=== PATIENT | male | born 1970 | race Caucasian/White ===

== ENCOUNTER 2021-04-19 12:44 | Outpatient (REF) | payer MEDICAID, SELFPAY ==
--- NOTE | ~2021-04-19 | MR_ITS ---
EXAMINATION: MR BRAIN WITHOUT CONTRAST CLINICAL INFORMATION: Paresthesias of skin. COMPARISON: Head CT dated 08/20/2011. TECHNIQUE: Multiplanar, multisequence imaging of the brain was performed without contrast. FINDINGS: No diffusion abnormalities are identified to suggest an acute or subacute infarct. The ventricles are normal in size. No mass effect or midline shift is seen. Minimal nonspecific bifrontal white matter signal changes noted. No extra-axial fluid collections are seen. The brainstem and cerebellum are normal. The gradient refocused acquisition is normal. The craniovertebral junction, marrow signal, and midline structures are normal. The major intracranial flow voids at the level of the [place] are preserved. The dural venous sinus flow voids are maintained. The mastoid air cells and paranasal sinuses are well aerated. MR/MR head/brain wo con IMPRESSION: No acute process. Minimal scattered white matter signal changes of indeterminate clinical significance.
== END 2021-04-19 12:45 | disposition home or self-care (01) ==
LOC: HO.MRI 12:44
PROVIDERS: PCP Student in an Organized Health Care Education/Training Program; Visit Provider Student in an Organized Health Care Education/Training Program
DX: R20.2 Paresthesia of skin (principal)
CPT/HCPCS: 70551

== ENCOUNTER 2021-05-27 08:54 | Emergency (ER) | payer MEDICAID, SELFPAY ==
--- NOTE | ~2021-05-27 | CT_ITS ---
EXAMINATION: CT ABDOMEN AND PELVIS WITHOUT CONTRAST CLINICAL INFORMATION: Right flank pain COMPARISON: None TECHNIQUE: Multidetector volumetric imaging was performed from the superior aspect of the liver through the pubic symphysis. Sagittal and coronal reformatted images were obtained on the technologist's workstation. This CT examination was performed using dose optimization techniques as appropriate, variously including the following: *Automated exposure control *Adjustment of mA and/or kV according to patient size (this includes techniques or standardized protocols for targeted exams where dose is matched to indication/reason for exam; i.e. extremities or head) *Use of iterative reconstruction technique DLP: 588 mGy-cm FINDINGS: LUNG BASES: The visualized lung bases are unremarkable. LIVER, GALLBLADDER, AND BILIARY TREE: The liver is low in attenuation suggestive of fatty infiltration. The liver is normal in size and contour. No focal liver lesion or biliary duct dilatation The gallbladder is unremarkable with no evidence of radiopaque gallstones, gallbladder wall thickening, or obvious pericholecystic inflammatory changes. PANCREAS: Unremarkable. SPLEEN: The spleen is enlarged and measures 15 cm in length. ADRENAL GLANDS: Unremarkable. KIDNEYS AND URETERS: There are multiple small bilateral renal stones. There is mild right hydronephrosis and ureteral dilatation down to the bladder from a 2 mm right UVJ or bladder stone. BLADDER: 2 mm right UVJ or bladder stone. The bladder is otherwise unremarkable. GASTROINTESTINAL TRACT: There are postsurgical changes to the sigmoid colon. The small and large bowel is otherwise unremarkable. The appendix is unremarkable. ABDOMINAL WALL: No significant hernia is appreciated. LYMPH NODES: Normal. VASCULAR: Unremarkable. PELVIC VISCERA: Unremarkable. OSSEOUS STRUCTURES: There are are degenerative changes of the spine and bilateral hip joints. There is degenerative disc disease at L5-S1. There is a 5 mm sclerotic lesion in the L4 vertebral body. This is nonspecific and may represent a bone island. Degenerative CT/CT abdomen pelvis wo con IMPRESSION: Mild right hydronephrosis and ureteral dilatation from a 2 mm right UVJ or bladder stone. Small bilateral renal stones. Fatty liver. Enlarged spleen. Postsurgical changes to the sigmoid colon.
[2021-05-27 08:58] VITALS: BP 179/102; PULSE 85; RESP 19; TEMP 35.1; O2SAT 100; BMI 27.3
--- NOTE | 2021-05-27 09:34 | ED_ITS ---
HPI - General Adult General Chief complaint: General Medical Stated complaint: kidney pain Time Seen by Provider: 05/27/21 09:33 History of Present Illness HPI narrative: Patient is a 50-year-old male with a history of having abdominal pain sudden in onset over the right flank area radiating to the right groin area. Sharp 04/28. No cough no congestion or upper respiratory symptoms. No diaphoresis. Pain on urination. No allergies to any medication. No diaphoresis no chest pain. No change in bowel movement. No history kidney stones in the past. Related Data Home Medications Medication Instructions Recorded Confirmed amlodipine 5 mg tablet 5 mg PO DAILY 05/27/21 bictegravir 50 mg-emtricitabine 1 tab PO DAILY 05/27/21 200 mg-tenofovir alafenam 25 mg tablet (Biktarvy) cyclobenzaprine 10 mg tablet 10 mg PO BID PRN 05/27/21 fluticasone propionate 44 2 puff PO BID 05/27/21 mcg/actuation HFA aerosol inhaler (Flovent HFA) levothyroxine 125 mcg tablet 250 mcg PO DAILY 05/27/21 sulfamethoxazole 800 1 tab PO DAILY 05/27/21 mg-trimethoprim 160 mg tablet Previous Rx's Medication Instructions Recorded ibuprofen 400 mg tablet 400 mg PO Q6H PRN #20 tab 05/27/21 ondansetron HCl 4 mg tablet 4 mg PO Q8H PRN #10 tab 05/27/21 (Zofran) oxycodone 5 mg tablet 5 mg PO Q8H PRN #7 tab 05/27/21 tamsulosin 0.4 mg capsule (Flomax) 0.4 mg PO DAILY #7 cap 05/27/21 Allergies Allergy/AdvReac Type Severity Reaction Status Date / Time No Known Allergies Allergy Unverified 04/05/20 17:21 Review of Systems Review of Systems: Positive right flank pain Positive nausea All systems reviewed otherwise negative [facility] Past Medical History Attestation statement: The following information was validated with the patient. Medical History HIV (human immunodeficiency virus infection) Kidney stone Social History Social History Advance Directives: No Advance Directives Information Provided: No Physical Exam Vital Signs: Vital Signs: Last Vital Signs Temp 95.2 F L 05/27/21 08:58 Pulse 85 05/27/21 08:58 Resp 19 05/27/21 08:58 BP 179/102 H 05/27/21 08:58 Pulse Ox 100 05/27/21 08:58 Body Mass Index 27.3 Appearance: Alert. Oriented X3. No acute distress. Eyes: Pupils equal, round and reactive to light. ENT: Pharynx normal. Neck: Normal inspection. Neck supple. No lymph nodes noted. No crepitus CVS: Normal heart rate and rhythm. Pulses normal. Normal S1 and S2 Respiratory: No respiratory distress. Breath sounds normal. No Wheezing. No rales Abdomen: Soft and nontender. No rigidity. No distention. good BS x4 Skin: Skin warm and dry. Normal skin color. Normal skin turgor. Extremities: No lower extremity edema. Neurovascular intact to all extremities. No Lacerations. No Rash Neuro: Oriented X 3. No motor deficit. No sensory deficit. Moving all extermities. No slurred speech Medical Decision Making MDM Narrative Medical decision making narrative: CT scan of the abdomen pelvis showed a 2 mm UVJ stone. Patient well appearing urine negative for infection creatinine is normal pain is controlled. Will discharge patient home close follow-up on an outpatient basis. Lab Data Result diagrams: 05/27/21 09:44 05/27/21 09:44 Labs: Lab Results 05/27/21 05/27/21 05/27/21 Range/Units 09:44 09:44 09:54 WBC 8.8 (4.8-10.8) X10*3/uL RBC 4.97 (4.60-5.80) X10*6/uL Hgb 16.5 (14.0-18.0) g/dl Hct 45.6 (42.0-52.0) % MCV 91.8 (80.0-98.0) fL MCH 33.2 H (27.0-33.0) pg MCHC 36.2 H (31.0-36.0) g/dl RDW 12.1 (11.0-16.0) % Plt Count 179 (160-400) X10*3/uL MPV 10.4 (9.4-12.4) fL Immature Gran % (Auto) 0.6 H (0.0-0.4) % Neut % (Auto) 71.3 (45-73) % Lymph % (Auto) 20.2 (20-40) % [place] % (Auto) 6.5 (2-11) % Eos % (Auto) 1.1 (0-4) % Baso % (Auto) 0.3 (0-2) % Lymph # (Auto) 1.8 (1.2-4.9) X10*3/uL [place] # (Auto) 0.6 (0.1-1.2) X10*3/uL Eos # (Auto) 0.1 (0.0-0.4) X10*3/uL Baso # (Auto) 0.0 (0.0-0.2) X10*3/uL Abs Immat Gran (auto) 0.05 H (0.00-0.03) X10*3/uL Absolute Neuts (auto) 6.3 (2.0-8.3) x10*3/uL Absolute Nucleated RBC 0.000 (0.0-0.012) X10*3/uL Nucleated RBC % (auto) 0.0 (0.0-0.2) /100WBC Sodium 138 (135-145) mmol/L Potassium 4.5 (3.3-5.1) mmol/L Chloride 104 (96-108) mmol/L Carbon Dioxide 25 (22-29) mmol/L Anion Gap 14 (12-20) BUN 16 (9-16) mg/dL Creatinine 1.32 (0.5-1.4) mg/dL Estim Creat Clear Calc 66.1 Estimated GFR 57 Random Glucose 151 H (60-115) mg/dL Calcium 9.7 (8.4-10.2) mg/dL Total Bilirubin 1.0 (0.0-1.0) mg/dL Direct Bilirubin 0.3 (0.0-0.5) mg/dL AST 36 (5-37) U/L ALT 54 H (0-40) U/L Alkaline Phosphatase 58 (39-117) U/L Total Creatine Kinase 277 H (38-174) U/L Total Protein 8.2 H (6.5-8.0) g/dL Albumin 5.1 H (3.5-5.0) g/dL Urine Color DK YELLOW Urine Appearance CLOUDY Urine pH 6.0 (5.0-8.0) Ur Specific [place] >= 1.030 H (1.005-1.025) Urine Protein 1+ H (NEG-TRACE) MG/DL Urine Glucose (UA) NEG (NEG) MG/DL Urine Ketones 5 (NEG) MG/DL Urine Blood 3+ H (NEG) Urine Nitrite NEG (NEG) Ur Leukocyte Esterase NEG (NEG) Urine RBC TNTC H (0) /HPF Urine WBC 0 (0-4) /HPF Ur Squamous Epith Cells NONE /LPF Urine Bacteria TRACE /LPF Discharge Plan Discharge Clinical Impression: Renal colic Patient Disposition: Home, Self-Care Instructions: Renal Colic (ED) Prescriptions: New ondansetron HCl [Zofran] 4 mg tablet 4 mg PO Q8H PRN (Reason: nausea and vomiting) Qty: 10 RF: 0 tamsulosin [Flomax] 0.4 mg capsule 0.4 mg PO DAILY Qty: 7 RF: 0 ibuprofen 400 mg tablet 400 mg PO Q6H PRN (Reason: pain) Qty: 20 RF: 0 oxycodone 5 mg tablet 5 mg PO Q8H PRN (Reason: pain) Qty: 7 RF: 0 No Action cyclobenzaprine 10 mg tablet 10 mg PO BID PRN (Reason: Muscle Spasm) RF: 0 amlodipine 5 mg tablet 5 mg PO DAILY RF: 0 sulfamethoxazole-trimethoprim 800-160 mg tablet 1 tab PO DAILY RF: 0 levothyroxine 125 mcg tablet 250 mcg PO DAILY RF: 0 Flovent HFA 44 mcg/actuation HFA aerosol inhaler 2 puff PO BID RF: 0 Biktarvy 50-200-25 mg tablet 1 tab PO DAILY RF: 0 Referrals: Aftab Nolan MD [Physician] - 2 days
[2021-05-27] MEDS: HYDROmorphone HCl 0.5 MG/0.5 ML SYRINGE IVPUSH ×2 (09:44→10:24)
[2021-05-27] MEDS: 0.9 % Sodium Chloride 500 ML 999 ML IV (09:48)
[2021-05-27 09:51] LABS: MANUAL DIFF FLAG NO
[2021-05-27 09:53] LABS: Basophils Percent Auto 0.3 % (0-2); Eosinophils Absolute Auto 0.1 X10*3/uL (0.0-0.4); Eosinophils Percent Auto 1.1 % (0-4); Hematocrit 45.6 % (42.0-52.0); Hemoglobin 16.5 g/dl (14.0-18.0); Imm Gran Abs Auto 0.05 X10*3/uL (0.00-0.03); Imm Gran Pct Auto 0.6 % (0.0-0.4); Lymphocytes Absolute Auto 1.8 X10*3/uL (1.2-4.9); Lymphocytes Percent Auto 20.2 % (20-40); Mean Corpuscular HGB Conc 36.2 g/dl (31.0-36.0); Mean Corpuscular Hemoglobin 33.2 pg (27.0-33.0); Mean Corpuscular Volume 91.8 fL (80.0-98.0); Mean Platelet Volume 10.4 fL (9.4-12.4); Monocytes Absolute Auto 0.6 X10*3/uL (0.1-1.2); Monocytes Percent Auto 6.5 % (2-11); Neutrophils Absolute Auto 6.3 x10*3/uL (2.0-8.3); Neutrophils Percent Auto 71.3 % (45-73); Platelet Count 179 X10*3/uL (160-400); Red Blood Count 4.97 X10*6/uL (4.60-5.80); Red Cell Distribution Width 12.1 % (11.0-16.0); White Blood Count 8.8 X10*3/uL (4.8-10.8)
[2021-05-27] MEDS: ondansetron HCL 4 MG/2 ML VIAL IVPUSH (09:53)
[2021-05-27 10:01] LABS: Appearance Urine CLOUDY; Color Urine DK YELLOW; Glucose Urine UA NEG (NEG); Leukocyte Esterase Urine NEG (NEG); Nitrite Urine NEG (NEG); Specific Gravity - Urine >= 1.030 (1.005-1.025); UACC Culture Trigger NO; Urine Blood 3+ (NEG); Urine Ketones 5 MG/DL (NEG); Urine Protein 1+ MG/DL (NEG-TRACE)
[2021-05-27] MEDS: 0.9 % Sodium Chloride 1,000 ML 999 ML IV (10:01)
[2021-05-27] MEDS: Ketorolac Tromethamine 15 MG/ML VIAL 30 MG IVPUSH (10:01)
[2021-05-27 10:10] LABS: Bacteria Urine TRACE /LPF; RBC Urine TNTC /HPF (0); WBC Urine 0 /HPF (0-4)
[2021-05-27 10:15] LABS: Alanine Aminotransferase 54 U/L (0-40); Albumin Level 5.1 g/dL (3.5-5.0); Alkaline Phosphatase 58 U/L (39-117); Anion Gap 14 (12-20); Aspartate Amino Transferase 36 U/L (5-37); Bilirubin Direct 0.3 mg/dL (0.0-0.5); Blood Urea Nitrogen 16 mg/dL (9-16); Calcium 9.7 mg/dL (8.4-10.2); Carbon Dioxide 25 mmol/L (22-29); Chloride 104 mmol/L (96-108); Creatinine Clr Calc Pharmacy 66.1; Estimated Glomerular Filt Rate 57; Glucose Random 151 mg/dL (60-115); Potassium 4.5 mmol/L (3.3-5.1); Sodium 138 mmol/L (135-145); Total Protein 8.2 g/dL (6.5-8.0)
[2021-05-27] MEDS: LORazepam 2 MG/ML VIAL 0.5 MG IVPUSH (10:23)
[2021-05-27 11:32] VITALS: BP 159/93; PULSE 81; RESP 16; TEMP 36.1; O2SAT 97
== END 2021-05-27 11:40 | disposition home or self-care (01) ==
PROVIDERS: Emergency Provider Emergency Medicine Emergency Medical Services
DX: N23 Unspecified renal colic (principal); Z79.899 Other long term (current) drug therapy
CPT/HCPCS: 36415; 74176; 80048; 80076; 81001; 82550; 85025; 96361; 96374; 96375; 96376; 99283; 99284; J1170; J1885; J2060; J2405

== ENCOUNTER → 2021-06-25 08:46 | Outpatient (BNVA) | payer MEDICAID, SELFPAY | PROVIDERS: Visit Provider Urology | DX: N20.0 Calculus of kidney (principal) | CPT/HCPCS: 99202 ==

== ENCOUNTER 2021-11-28 08:45 | Outpatient (REF) | payer MEDICAID, SELFPAY ==
--- NOTE | ~2021-11-28 | US_ITS ---
EXAMINATION: US RETROPERITONEAL LIMITED (RENAL ONLY) CLINICAL INFORMATION: Calculus of kidney. COMPARISON: CT abdomen and pelvis 05/27/2021. X-ray abdomen 10/23/2017. TECHNIQUE: Real-time imaging of the kidneys. FINDINGS: RIGHT KIDNEY: 11.0 x 7.2 x 7.3 cm (SAG x AP x TRV). The kidney is normal in size, contour, and echogenicity. Renal cortical thickness is normal. No calculi or focal parenchymal lesions. No hydronephrosis. There are multiple punctate calcifications seen throughout with no twinkle artifact. The largest echogenic area measures 0.4 x 0.4 cm. No echogenic shadowing seen. There is no caliectasis. LEFT KIDNEY: 11.1 x 6.4 x 6.1 cm (SAG x AP x TRV). The kidney is normal in size, contour, and echogenicity. Renal cortical thickness is normal. No calculi or focal parenchymal lesions. No hydronephrosis. There are multiple punctate calcifications seen throughout with no twinkle artifact. No echogenic calcification either. There is no caliectasis. US/US renal BI IMPRESSION: Multiple echogenic areas within both kidneys without twinkle artifact likely small calcifications. There is no caliectasis or hydronephrosis.
== END 2021-11-28 08:46 | disposition home or self-care (01) ==
LOC: HO.US 08:45
PROVIDERS: Visit Provider Urology
DX: N20.0 Calculus of kidney (principal)
CPT/HCPCS: 76775

== ENCOUNTER 2022-04-30 09:53 | Observation (INO) | payer MEDICAID, SELFPAY ==
[2022-04-30] VITALS (11 sets, daily range): BP systolic 148–190; BP diastolic 7–111; PULSE 79–100; RESP 14–20; TEMP 36.4–36.8; O2SAT 97–98; BMI 27.8
--- NOTE | ~2022-04-30 | MR_ITS ---
EXAMINATION: MR BRAIN WITHOUT CONTRAST CLINICAL INFORMATION: Dizziness COMPARISON: Same day CT head without contrast, MR brain without contrast 04/19/2021 TECHNIQUE: Multiplanar multisequence MR imaging of the brain was obtained without intravenous contrast. FINDINGS: There is no acute infarct on diffusion-weighted imaging. There is no intracranial hemorrhage on iron-sensitive imaging. No extra-axial collection or mass effect/herniation. There are several scattered foci of nonspecific supratentorial white matter T2/FLAIR signal abnormality. No hydrocephalus. Mild generalized cerebral volume loss with commensurate sulcal and ventricular prominence. Asymmetric caliber of the lateral ventricles, likely congenital The major flow voids at the skull base are preserved. The midline structures are normal. The cerebellar tonsils are normally positioned. The craniocervical junction is normal. Marrow signal is within normal limits. The visualized soft tissues are without significant abnormality. Moderate left sphenoid sinus opacification and mucosal thickening. Layering fluid in the left maxillary sinus. Mild ethmoid sinus fluid signal. MR/MR head/brain wo con IMPRESSION: 1. No acute infarct or other acute intracranial abnormality. 2. Opacification of the left sphenoid sinus and layering fluid in the left maxillary sinus. Correlate clinically for acute sinusitis.
--- NOTE | ~2022-04-30 | XR_ITS ---
EXAMINATION: XR CHEST CLINICAL INFORMATION: Cough. COMPARISON: None TECHNIQUE: Frontal view of the chest was obtained. FINDINGS: No significant abnormality is noted involving the heart, lungs, mediastinum, bony thorax or soft tissues. XR/XR chest 1V IMPRESSION: No acute cardiopulmonary process.
--- NOTE | ~2022-04-30 | CT_ITS ---
EXAMINATION: CT HEAD WITHOUT CONTRAST CLINICAL INFORMATION: Dizziness. COMPARISON: Head CT scan dated 08/20/2011. TECHNIQUE: Contiguous axial imaging was performed from the skull base to vertex without intravenous administration of contrast. Coronal and sagittal reformatted images were obtained. This CT examination was performed using dose optimization techniques as appropriate, variously including the following: *Automated exposure control *Adjustment of mA and/or kV according to patient size (this includes techniques or standardized protocols for targeted exams where dose is matched to indication/reason for exam; i.e. extremities or head) *Use of iterative reconstruction technique DLP: 735 mGy-cm FINDINGS: The cortical sulci are normal. The lateral ventricles are symmetrical. The third and fourth ventricles are in their normal midline position. The basilar and prepontine cisterns are unremarkable. There is no acute intra or extracerebral abnormality. There is no mass effect or midline shift. Sections through the bony calvarium are unremarkable. The paranasal sinuses show mild to moderate dependent mucosal thickening/air-fluid level/mucous in the left maxillary and sphenoid sinuses. Mild mucosal thickening in the ethmoid sinuses bilaterally. The bony orbits and orbital contents are unremarkable. Mild anterior nasal septal deviation, apex the left. CT/CT head/brain wo IV con IMPRESSION: 1. No acute intracranial pathology. 2. Paranasal sinus inflammatory changes as detailed above.
--- NOTE | 2022-04-30 10:27 | ECG_ITS ---
Test Reason : dizziness Blood Pressure : / mmHG Vent. Rate : 080 BPM Atrial Rate : 080 BPM P-R Int : 160 ms QRS Dur : 090 ms QT Int : 354 ms P-R-T Axes : 061 -02 042 degrees QTc Int : 408 ms Normal sinus rhythm RSR' or QR pattern in V1 suggests right ventricular conduction delay T-wave inversion in Lateral leads Abnormal ECG Referred By: Sybil Burger Electronically Signed By:AMI GUZMAN MD
--- NOTE | 2022-04-30 10:33 | ED_ITS ---
HPI - Dizziness General Chief Complaint: Dizziness Stated Complaint: dizzy, HBP, 3 stance in heart Time Seen by Provider: 04/30/22 10:25 Source: patient Mode of arrival: ambulatory Limitations: no limitations History of Present Illness HPI Narrative: 51 yo male with hx of CAD s/p PCI with 3 stents, HTN, RAD, HIV well controlled undetectable, hypothyroidism here with c/o having URI symptoms - fatigue, dyspnea, cough x 2 weeks. Negative COVID tests during this time. He just hasn't felt well. Last night took Delsym before bed around 9pm. Woke up at 12am feeling drugged, out of it, seeing crazy colors, BP was high (didnt take his BP meds this AM). He currently still feels out of it. He states initially he took 20mL but then states it was just a cap full so maybe just 5mL MD elicited complaint: other (feeling off, drugged, dizziness, URI symptoms) Onset (ago): day(s) (12 am with dizziness, URI x 2 weeks) Timing: sudden onset, awoke with symptoms and constant (but seems to be improving) Severity: severe Description: lightheadedness (VH seeing colors) Context: change in medication (took delsym) History of similar symptoms: No Exacerbating factors: nothing Relieving factors: nothing Associated symptoms: other (cough, dyspnea, fatigue) Related Data Home Medications Medication Instructions Recorded Confirmed amlodipine 5 mg tablet 5 mg PO DAILY 05/27/21 bictegravir 50 mg-emtricitabine 1 tab PO DAILY 05/27/21 200 mg-tenofovir alafenam 25 mg tablet (Biktarvy) cyclobenzaprine 10 mg tablet 10 mg PO BID PRN Muscle Spasm 05/27/21 fluticasone propionate 44 2 puff PO BID 05/27/21 mcg/actuation HFA aerosol inhaler (Flovent HFA) levothyroxine 125 mcg tablet 250 mcg PO DAILY 05/27/21 sulfamethoxazole 800 1 tab PO DAILY 05/27/21 mg-trimethoprim 160 mg tablet amlodipine 10 mg tablet 10 mg PO DAILY 06/25/21 sulfamethoxazole 400 1 tab PO BID 06/25/21 mg-trimethoprim 80 mg tablet albuterol sulfate 90 mcg/actuation 2 puff PO QID 12/27/21 aerosol inhaler (ProAir HFA) cetirizine 10 mg tablet 10 mg PO DAILY 12/27/21 Previous Rx's Medication Instructions Recorded ibuprofen 400 mg tablet 400 mg PO Q6H PRN pain #20 tabs 05/27/21 ondansetron HCl 4 mg tablet 4 mg PO Q8H PRN nausea and 05/27/21 (Zofran) vomiting #10 tabs oxycodone 5 mg tablet 5 mg PO Q8H PRN pain #7 tabs 05/27/21 prednisone 20 mg tablet 20 mg PO DAILY 5 days #5 tabs 05/28/21 pyridoxine (vitamin B6) 100 mg 100 mg PO DAILY 90 days #90 tabs 06/25/21 tablet naproxen 500 mg tablet (Naprosyn) 500 mg PO BID PRN pain #60 tabs 08/13/21 tamsulosin 0.4 mg capsule 0.4 mg PO BEDTIME 5 days #5 caps 08/13/21 Allergies Allergy/AdvReac Type Severity Reaction Status Date / Time No Known Allergies Allergy Verified 12/31/21 07:57 Review of Systems Review of Systems: Constitutional : No Fever, No Chills ENT/Mouth : No sore throat, No Rhinorrhea, No Swallowing Difficulty Eyes: No Eye Pain, No Swelling, No Redness Cardiovascular : No Chest Pain, positive SOB, No Orthopnea, no Edema Respiratory : pos Cough, No Sputum, No Wheezing, positive dyspnea Gastrointestinal : No Nausea, No Vomiting, No Diarrhea, No abdominal Pain, No Hematochezia, No Melena Genitourinary : No Dysuria, No Urinary Frequency, No Hematuria Musculoskeletal : No joint pain, No Myalgias Skin : No Skin Lesions, No rash Neuro : No Weakness, No Numbness, pos Dizziness, No Headache, pos visual hallucinations Psych : No Anxiety/Panic, No Depression Heme/Lymph: No Bruising, No Lymphadenopathy Endocrine : No Polyuria, No Polydipsia All other systems reviewed and are negative [facility] Past Medical History Attestation statement: The following information was validated with the patient. Medical History Coronary artery disease involving [place] coronary artery of [place] heart with angina pectoris Diverticulitis Essential hypertension GERD (gastroesophageal reflux disease) HIV (human immunodeficiency virus infection) Hypothyroidism Ischemic cardiomyopathy Kidney stone Pure hypercholesterolemia Surgical History History of surgery Stented coronary artery Social History Social History Patient Tobacco Use Status: Never used Tobacco Use of substances other than those prescribed or required for medical reasons: No Advance Directives: No Advance Directives Information Provided: Yes Physical Exam Vital Signs: Vital Signs: Last Vital Signs Temp 98.1 F 04/30/22 14:35 Pulse 80 04/30/22 14:35 Resp 14 04/30/22 14:35 BP 154/80 H 04/30/22 14:35 Pulse Ox 98 04/30/22 14:35 O2 Del Method 04/30/22 14:35 BMI result Body Mass Index 27.8 Appearance: Alert. Oriented X3. No acute distress. Eyes: Pupils equal, round and reactive to light. ENT: Pharynx normal. Neck: Normal inspection. Neck supple. CVS: Normal heart rate and rhythm. Pulses normal. Respiratory: No respiratory distress. Breath sounds normal. Abdomen: Soft and nontender. Skin: Skin warm and dry. Normal skin color. Normal skin turgor. Extremities: No lower extremity edema. No calf ttp Neuro: Oriented X 3. No motor deficit. No sensory deficit. NIH Stroke Scale Internal: Initial- Upon Arrival Level of Consciousness: Alert Level of Consciousness Questions: Answers both questions correctly Level of Consciousness Commands: Performs both tasks correctly Best Gaze: Normal Visual: No visual loss Facial Palsy: Normal Motor Arm (Right): No drift Motor Arm (Left): No drift Motor Leg (Right): No drift Motor Leg (Left): No drift Limb Ataxia: Absent Sensory: Normal Best Language: No aphasia Dysarthia: Normal Extinction and Inattention: No abnormality Score: 0 Course Course Course Narrative: dizziness upon standing suspect issues still from dextromethorphan - still dizzy, posterior MRI ordered NIH too low symptoms since midnight out of tPa window. signed out to Dr. Hicks pending MRI MDM - Dizziness MDM Narrative Medical decision making narrative: 51 yo male with hx of CAD s/p PCI with 3 stents, HTN, RAD, HIV well controlled undetectable, hypothyroidism here with c/o feeling drugged, dizzy, seeing colors after taking delsym last night for URI symptoms of 2 weeks. At this time labs, CXR, PCR for COVID/RSV ordered. CT head ordered though NIH 0 at this time and onset 12am out of window for tPa. Suspect his neuro symptoms a result of taking dextromethorphan which he doesn't take at baseline. Dispo per results and findings. Lab Data Result diagrams: 04/30/22 10:48 04/30/22 10:48 Labs: Lab Results 04/30/22 04/30/22 04/30/22 Range/Units 10:48 10:48 10:48 WBC 7.5 (4.8-10.8) X10*3/uL RBC 4.43 L (4.60-5.80) X10*6/uL Hgb 14.4 (14.0-18.0) g/dl Hct 39.7 L (42.0-52.0) % MCV 89.6 (80.0-98.0) fL MCH 32.5 (27.0-33.0) pg MCHC 36.3 H (31.0-36.0) g/dl RDW 11.9 (11.0-16.0) % Plt Count 200 (160-400) X10*3/uL MPV 10.4 (9.4-12.4) fL Immature Gran % (Auto) 1.1 H (0.0-0.4) % Neut % (Auto) 69.2 (45-73) % Lymph % (Auto) 22.3 (20-40) % [place] % (Auto) 6.2 (2-11) % Eos % (Auto) 0.8 (0-4) % Baso % (Auto) 0.4 (0-2) % Lymph # (Auto) 1.7 (1.2-4.9) X10*3/uL [place] # (Auto) 0.5 (0.1-1.2) X10*3/uL Eos # (Auto) 0.1 (0.0-0.4) X10*3/uL Baso # (Auto) 0.0 (0.0-0.2) X10*3/uL Abs Immat Gran (auto) 0.08 H (0.00-0.03) X10*3/uL Absolute Neuts (auto) 5.2 (2.0-8.3) x10*3/uL Absolute Nucleated RBC 0.000 (0.0-0.012) X10*3/uL Nucleated RBC % (auto) 0.0 (0.0-0.2) /100WBC PT 13.1 (10.0-13.1) SEC INR 1.1 (0.9-1.1) APTT 35.0 (26.0-36.4) SEC Sodium 140 (135-145) mmol/L Potassium 3.9 (3.3-5.1) mmol/L Chloride 105 (96-108) mmol/L Carbon Dioxide 24 (22-29) mmol/L Anion Gap 15 (12-20) BUN 12 (9-16) mg/dL Creatinine 1.18 (0.5-1.4) mg/dL Estim Creat Clear Calc 73.6 Estimated GFR > 60 Random Glucose 134 H (60-115) mg/dL Calcium 9.2 (8.4-10.2) mg/dL Magnesium 2.3 (1.6-2.6) mg/dL Total Bilirubin 0.7 (0.0-1.0) mg/dL Direct Bilirubin 0.2 (0.0-0.5) mg/dL AST 23 (5-37) U/L ALT 35 (0-40) U/L Alkaline Phosphatase 59 (39-117) U/L Troponin I High Sens (<3.5-35.0) ng/L B-Natriuretic Peptide (<100) pg/mL Total Protein 7.8 (6.5-8.0) g/dL Albumin 4.8 (3.5-5.0) g/dL Lipase 46 (8-78) U/L TSH (0.32-4.0) uIU/mL Urine Color Urine Appearance Urine pH (5.0-9.0) Ur Specific Newman (1.005-1.025) Urine Protein (Neg-Trace) mg/dL Urine Glucose (UA) (Negative) mg/dL Urine Ketones (Negative) mg/dL Urine Blood (Negative) Urine Nitrite (Negative) Ur Leukocyte Esterase (Negative) Influenza Type A (PCR) (Negative) Influenza Type B (PCR) (Negative) RSV RNA Qual (PCR) (Negative) SARS-CoV-2 RNA (RT-PCR) (Negative) 04/30/22 04/30/22 04/30/22 Range/Units 10:48 10:48 10:51 WBC (4.8-10.8) X10*3/uL RBC (4.60-5.80) X10*6/uL Hgb (14.0-18.0) g/dl Hct (42.0-52.0) % MCV (80.0-98.0) fL MCH (27.0-33.0) pg MCHC (31.0-36.0) g/dl RDW (11.0-16.0) % Plt Count (160-400) X10*3/uL MPV (9.4-12.4) fL Immature Gran % (Auto) (0.0-0.4) % Neut % (Auto) (45-73) % Lymph % (Auto) (20-40) % [place] % (Auto) (2-11) % Eos % (Auto) (0-4) % Baso % (Auto) (0-2) % Lymph # (Auto) (1.2-4.9) X10*3/uL [place] # (Auto) (0.1-1.2) X10*3/uL Eos # (Auto) (0.0-0.4) X10*3/uL Baso # (Auto) (0.0-0.2) X10*3/uL Abs Immat Gran (auto) (0.00-0.03) X10*3/uL Absolute Neuts (auto) (2.0-8.3) x10*3/uL Absolute Nucleated RBC (0.0-0.012) X10*3/uL Nucleated RBC % (auto) (0.0-0.2) /100WBC PT (10.0-13.1) SEC INR (0.9-1.1) APTT (26.0-36.4) SEC Sodium (135-145) mmol/L Potassium (3.3-5.1) mmol/L Chloride (96-108) mmol/L Carbon Dioxide (22-29) mmol/L Anion Gap (12-20) BUN (9-16) mg/dL Creatinine (0.5-1.4) mg/dL Estim Creat Clear Calc Estimated GFR Random Glucose (60-115) mg/dL Calcium (8.4-10.2) mg/dL Magnesium (1.6-2.6) mg/dL Total Bilirubin (0.0-1.0) mg/dL Direct Bilirubin (0.0-0.5) mg/dL AST (5-37) U/L ALT (0-40) U/L Alkaline Phosphatase (39-117) U/L Troponin I High Sens < 3.5 (<3.5-35.0) ng/L B-Natriuretic Peptide 44 (<100) pg/mL Total Protein (6.5-8.0) g/dL Albumin (3.5-5.0) g/dL Lipase (8-78) U/L TSH 0.87 (0.32-4.0) uIU/mL Urine Color Urine Appearance Urine pH (5.0-9.0) Ur Specific Newman (1.005-1.025) Urine Protein (Neg-Trace) mg/dL Urine Glucose (UA) (Negative) mg/dL Urine Ketones (Negative) mg/dL Urine Blood (Negative) Urine Nitrite (Negative) Ur Leukocyte Esterase (Negative) Influenza Type A (PCR) NEGATIVE (Negative) Influenza Type B (PCR) NEGATIVE (Negative) RSV RNA Qual (PCR) NEGATIVE (Negative) SARS-CoV-2 RNA (RT-PCR) NEGATIVE (Negative) 04/30/22 04/30/22 Range/Units 11:34 13:37 WBC (4.8-10.8) X10*3/uL RBC (4.60-5.80) X10*6/uL Hgb (14.0-18.0) g/dl Hct (42.0-52.0) % MCV (80.0-98.0) fL MCH (27.0-33.0) pg MCHC (31.0-36.0) g/dl RDW (11.0-16.0) % Plt Count (160-400) X10*3/uL MPV (9.4-12.4) fL Immature Gran % (Auto) (0.0-0.4) % Neut % (Auto) (45-73) % Lymph % (Auto) (20-40) % [place] % (Auto) (2-11) % Eos % (Auto) (0-4) % Baso % (Auto) (0-2) % Lymph # (Auto) (1.2-4.9) X10*3/uL [place] # (Auto) (0.1-1.2) X10*3/uL Eos # (Auto) (0.0-0.4) X10*3/uL Baso # (Auto) (0.0-0.2) X10*3/uL Abs Immat Gran (auto) (0.00-0.03) X10*3/uL Absolute Neuts (auto) (2.0-8.3) x10*3/uL Absolute Nucleated RBC (0.0-0.012) X10*3/uL Nucleated RBC % (auto) (0.0-0.2) /100WBC PT (10.0-13.1) SEC INR (0.9-1.1) APTT (26.0-36.4) SEC Sodium (135-145) mmol/L Potassium (3.3-5.1) mmol/L Chloride (96-108) mmol/L Carbon Dioxide (22-29) mmol/L Anion Gap (12-20) BUN (9-16) mg/dL Creatinine (0.5-1.4) mg/dL Estim Creat Clear Calc Estimated GFR Random Glucose (60-115) mg/dL Calcium (8.4-10.2) mg/dL Magnesium (1.6-2.6) mg/dL Total Bilirubin (0.0-1.0) mg/dL Direct Bilirubin (0.0-0.5) mg/dL AST (5-37) U/L ALT (0-40) U/L Alkaline Phosphatase (39-117) U/L Troponin I High Sens 4.3 (<3.5-35.0) ng/L B-Natriuretic Peptide (<100) pg/mL Total Protein (6.5-8.0) g/dL Albumin (3.5-5.0) g/dL Lipase (8-78) U/L TSH (0.32-4.0) uIU/mL Urine Color Yellow Urine Appearance Clear Urine pH 6.0 (5.0-9.0) Ur Specific Newman 1.020 (1.005-1.025) Urine Protein Negative (Neg-Trace) mg/dL Urine Glucose (UA) Negative (Negative) mg/dL Urine Ketones Negative (Negative) mg/dL Urine Blood Negative (Negative) Urine Nitrite Negative (Negative) Ur Leukocyte Esterase Negative (Negative) Influenza Type A (PCR) (Negative) Influenza Type B (PCR) (Negative) RSV RNA Qual (PCR) (Negative) SARS-CoV-2 RNA (RT-PCR) (Negative) ECG Data Attestation: I personally reviewed and interpreted this ECG as follows: ECG interpretation date: 04/30/22 ECG interpretation time: 11:28 Interpretation: Rate: 80 Rhythm: NSR Sanford: normal Normal P waves. Normal RAMONA. Normal QRS complex. ST T wave : nonspecific V4-V6 no MISTY qTC: normal prior studies: no acute ischemia no sig change from 2019 The study has been interpreted contemporaneously by me. Discharge Plan Discharge Clinical Impression: Adverse reaction to drug, Acute pansinusitis Patient Disposition: Still a Patient Instructions: Sinusitis (ED) Prescriptions: No Action prednisone 20 mg tablet 20 mg PO DAILY 5 Days Qty: 5 0RF tamsulosin 0.4 mg capsule 0.4 mg PO BEDTIME 5 Days Qty: 5 0RF naproxen [Naprosyn] 500 mg tablet 500 mg PO BID PRN (Reason: pain) Qty: 60 0RF cyclobenzaprine 10 mg tablet 10 mg PO BID PRN (Reason: Muscle Spasm) amlodipine 5 mg tablet 5 mg PO DAILY sulfamethoxazole-trimethoprim 800-160 mg tablet 1 tab PO DAILY levothyroxine 125 mcg tablet 250 mcg PO DAILY Flovent HFA 44 mcg/actuation HFA aerosol inhaler 2 puff PO BID Biktarvy 50-200-25 mg tablet 1 tab PO DAILY ondansetron HCl [Zofran] 4 mg tablet 4 mg PO Q8H PRN (Reason: nausea and vomiting) Qty: 10 0RF ibuprofen 400 mg tablet 400 mg PO Q6H PRN (Reason: pain) Qty: 20 0RF oxycodone 5 mg tablet 5 mg PO Q8H PRN (Reason: pain) Qty: 7 0RF sulfamethoxazole-trimethoprim 400-80 mg tablet 1 tab PO BID amlodipine 10 mg tablet 10 mg PO DAILY pyridoxine (vitamin B6) 100 mg tablet 100 mg PO DAILY 90 Days Qty: 90 1RF albuterol sulfate [ProAir HFA] 90 mcg/actuation HFA aerosol inhaler 2 puff PO QID cetirizine 10 mg tablet 10 mg PO DAILY
--- OUTSIDE RECORDS SUMMARY | 2022-04-30 10:48 | XMS_ITS | Continuity of Care Document ---
:1970 Author Organization [facility] Address [address] [place] [address]- Care Team Providers Name Role Phone Karly De La Garza MD Primary Care Physician [place] [facility] [place] 01/30/[place] [facility] [address] [place] [address] Attending Physician: AdmYong shaikh Admitting Physician: Admtr, [id number] Referring Physician: Admtr, Ar8 Allergies, Adverse Reactions, Alerts Substance Reaction Severity Status Egg Allergy Active Immunizations Given and Recorded Vaccine Date Status Refusal Reason pneumococcal 23-valent vaccine 07/08/17 Given Medications Amlodipine By Mouth, Daily, 0 Refills, Maintenance, 03/26/18 9:05:10 EDT Start Date: 03/26/18 Status: Orderedaspirin 81 mg oral delayed release tablet 81 mg, By Mouth, Daily, # 200 tablet, Refills 3, Tot. Refills 3, Maintenance, 07/16/17 13:28:48, Route to Pharmacy Electronically, [id number], [facility] [id number] Start Date: 07/16/17 Status: OrderedBiktarvy By Mouth, Daily, 0 Refills, Maintenance, 11/30/19 9:06:00 EDT Start Date: 11/30/19 Status: Orderedcyclobenzaprine 5 mg oral tablet 4 tablet = 20 mg, By Mouth, Daily, 0 Refills, Maintenance, 07/07/17 14:25:36 EST Start Date: 07/07/17 Status: Orderedlevothyroxine 125 mcg (0.125 mg) oral tablet 2 tablet = 250 mcg, By Mouth, Daily, # 180 tablet, 4 Refills, Maintenance, 06/06/20 9:21:00 EST, Tablet, [facility] #[id number], 170, cm, 08/22/19 14:32:00 EST, Height Start Date: 06/06/20 Status: Orderedticagrelor 90 mg oral tablet 1 tablet = 90 mg, By Mouth, 2 times a day, # 180 tablet, 3 Refills, Maintenance, 07/16/17 13:27:39, Tablet Start Date: 07/16/17 Stop Date: 07/11/18 Status: Ordered Problem List Condition Effective Dates Status Health Status Informant CAD (coronary artery Active disease)(Confirmed) Diverticulitis(Confirmed) Active Ex-smoker(Confirmed) Active HLD (hyperlipidemia)(Confirmed) Active HTN (hypertension)(Confirmed) Active Unstable angina(Confirmed) Active Mild TBI(Confirmed) Active Social History Social History Type Response Smoking Status Former smoker; Type: Cigaret cherry; Type: Quit 10 years ago entered on: 07/27/17 Sex
--- OUTSIDE RECORDS SUMMARY | 2022-04-30 10:48 | XMS_ITS | Continuity of Care Document ---
:1970 Author Organization [facility] Address [address] [place] [address]- Care Team Providers Name Role Phone Karly De La Garza MD Primary Care Physician Encounter [facility] [place](s[place] 08/20/19 - 08/20/[address] [address]- [facility] Attending Physician: Karly De La Garza MD Allergies, Adverse Reactions, Alerts Substance Reaction Severity [...] Maintenance, 07/16/17 13:28:48, Route to Pharmacy Electronically, [id number], [facility] [id number] Start Date: 07/16/17 Status: Orderedatorvastatin 80 mg oral tablet = 80 mg, By Mouth, Daily at bedtime, # 30 tablet, 0 Refills, Maintenance, Tablet, Route to Pharmacy Electronically, [id number], [facility] Start Date: 07/09/17 Status: Orderedcyclobenzaprine 5 mg oral tablet 1 tablet = 5 mg, By Mouth, Daily, 0 Refills, Maintenance, 07/07/17 14:25:36 Start Date: 07/07/17 Status: Orderedlisinopril 10 mg oral tablet 10 mg, 1, tablet, By Mouth, Daily, This is an increase in dose compared to his current regimen of 5 mg., # 90 tablet, Refills 3, Tot. Refills 3, Maintenance, 07/16/17 13:24:15, Route to Pharmacy Electronically, [id number], [place]... Start Date: 07/16/17 Stop Date: 07/11/18 Status: Orderedmetoprolol 100 mg oral tablet, extended release 100 mg, 1, tablet, By Mouth, Daily, This replaces his current regimen of 25 mg q8h., # 90 tablet, Refills 3, Tot. Refills 3, Maintenance, 07/16/17 13:26:25, Route to Pharmacy Electronically, [id number], [facility]... Start Date: 07/16/17 Stop Date: 07/11/18 Status: OrderedSynthroid 0.3 mg oral tablet 1 tablet = 300 mcg, By Mouth, Daily, 0 Refills, Maintenance, 10/21/13 10:25:43 Start Date: 10/21/13 Status: Orderedticagrelor 90 mg oral tablet 1 tablet = 90 mg, By Mouth, 2 times a day, # 180 tablet, 3 Refills, Maintenance, 07/16/17 13:27:39, Tablet Start Date: 07/16/17 Stop Date: 07/11/18 Status: OrderedTivicay 50 mg oral tablet 1 tablet = 50 mg, By Mouth, Daily, # 30 tablet, 0 Refills, Maintenance, 07/07/17 14:38:28, Tablet Start Date: 07/07/17 Status: OrderedTruvada 200 mg-300 mg oral tablet 1 tablet, By Mouth, Daily, # 90 tablet, 0 Refills, Maintenance, 07/07/17 14:26:19, Tablet Start Date: 07/07/17 Status: Ordered Problem List Condition Effective Dates Status Health Status Informant CAD (coronary artery Active disease)(Confirmed) Diverticulitis(Confirmed) Active Ex-smoker(Confirmed) Active HLD (hyperlipidemia)(Confirmed) Active HTN (hypertension)(Confirmed) Active Unstable angina(Confirmed) Active Mild TBI(Confirmed) Active Social History Social History Type Response Smoking Status Former smoker; Type: Cigaret cherry; Type: Quit 10 years ago entered on: 07/27/17 Sex
--- OUTSIDE RECORDS SUMMARY | 2022-04-30 10:48 | XMS_ITS | Continuity of Care Document ---
:1970 Author Organization [facility] Address [address] [place] [address]- Care Team Providers Name Role Phone Holli JASMINE, Karly Robles Primary Care Physician Encounter [facility] Date(s): 08/05/19 - 08/12/[address] [address]- [facility] Attending Physician: Pepito Webber MD Allergies, Adverse Reactions, Alerts Substance Reaction [...] Maintenance, 07/16/17 13:28:48, Route to Pharmacy Electronically, [id number], [facility] [address] Start Date: 07/16/17 Status: Orderedatorvastatin 80 mg oral tablet = 80 mg, By Mouth, Daily at bedtime, # 30 tablet, 0 Refills, Maintenance, Tablet, Route to Pharmacy Electronically, [id number], [facility] Start Date: 07/09/17 Status: Orderedcyclobenzaprine [...] Maintenance, 07/16/17 13:24:15, Route to Pharmacy Electronically, [id number], [place]... Start Date: 07/16/17 Stop Date: 07/11/18 Status: Orderedmetoprolol 100 mg oral tablet, extended release 100 mg, 1, tablet, By Mouth, Daily, This replaces his current regimen of 25 mg q8h., # 90 tablet, Refills 3, Tot. Refills 3, Maintenance, 07/16/17 13:26:25, Route to Pharmacy Electronically, [id number], [facility]... Start Date: 07/16/17 Stop Date: 07/11/18 [...]
--- OUTSIDE RECORDS SUMMARY | 2022-04-30 10:48 | XMS_ITS | Continuity of Care Document ---
:1970 Author Organization [facility] Address [address] [place] [phone]- Care Team Providers Name Role Phone Karly De La Garza MD Primary Care Physician [place] [facility] [place] [facility] [address] [place] [address]- [facility] Attending Physician: America Mesa DO Referring Physician: Karly De La Garza MD Allergies, [...] Maintenance, 07/16/17 13:28:48, Route to Pharmacy Electronically, [id number], [facility] [id number] Start Date: 07/16/17 Status: OrderedBiktarvy By Mouth, Daily, 0 Refills, Maintenance, 11/30/19 9:06:00 EDT Start Date: 11/30/19 Status: Orderedcyclobenzaprine 5 mg oral tablet 4 tablet = 20 mg, By Mouth, Daily, 0 Refills, Maintenance, 07/07/17 14:25:36 EST Start Date: 07/07/17 Status: OrderedLasix 20 mg oral tablet See Instructions, 1 capsule By Mouth every other day, # 15 tablet, Refills 0, Maintenance, 11/30/19 9:06:00 EDT, Instructions Replace Required Details Start Date: 11/30/19 Status: Orderedlevothyroxine 125 mcg (0.125 mg) oral tablet 2 tablet = 250 mcg, By Mouth, Daily, # 180 tablet, 4 Refills, Maintenance, 11/30/19 9:01:00 EDT, Tablet, [facility] #[id number], 170, cm, 08/22/19 14:32:00 EST, Height, 80, kg, 03/16/18 11:59:00 EDT, Dry Weight Start Date: 11/30/19 Status: OrderedLyrica CR By Mouth, Daily before dinner, 0 Refills, Maintenance, 11/30/19 9:03:00 EDT Start Date: 11/30/19 Status: Orderedticagrelor 90 mg oral tablet 1 tablet = 90 mg, By Mouth, 2 times a day, # 180 tablet, 3 Refills, Maintenance, 07/16/17 13:27:39, Tablet Start Date: 07/16/17 Stop Date: 07/11/18 Status: OrderedTramadol By Mouth, 0 Refills, Maintenance, 11/30/19 9:06:00 EDT Start Date: 11/30/19 Status: Ordered Problem List Condition Effective Dates Status Health Status Informant CAD (coronary artery Active disease)(Confirmed) Diverticulitis(Confirmed) Active Ex-smoker(Confirmed) Active HLD (hyperlipidemia)(Confirmed) Active HTN (hypertension)(Confirmed) Active Unstable angina(Confirmed) Active Mild TBI(Confirmed) Active Social History Social History Type Response Smoking Status Former smoker; Type: Cigaret cherry; Type: Quit 10 years ago entered on: 07/27/17 Sex
--- OUTSIDE RECORDS SUMMARY | 2022-04-30 10:48 | XMS_ITS | Continuity of Care Document ---
:1970 Author Organization [facility] Address [address] [place] [address]- Care Team Providers Name Role Phone Karly De La Garza MD Primary Care Physician Encounter [facility] [place](s): 07[place]27/20 - 08/26/20 [facility] [address] [place] [address] [id number] Attending Physician: Yong Villafana Admitting Physician: Yong Villafana Referring Physician: AdmtrYong Allergies, Adverse Reactions, Alerts Substance Reaction Severity [...] Maintenance, 07/16/17 13:28:48, Route to Pharmacy Electronically, [id number], [facility] [id number] Start Date: 07/16/17 Status: OrderedBiktarvy By Mouth, [...] 4 Refills, Maintenance, 06/06/20 9:21:00 EST, Tablet, [id number], 170, cm, 08/22/19 14:32:00 EST, Height Start Date: 06/06/20 Status: OrderedLyrica CR By Mouth, Daily before [...]
--- OUTSIDE RECORDS SUMMARY | 2022-04-30 10:48 | XMS_ITS | Continuity of Care Document ---
:1970 Author Organization [facility]enter[facility] Address [address] [place] [address]- Care Team Providers Name Role Phone Karly De La Garza MD [id number]): [facility] - 08[facility]20 [facility] [address] [place] [id number] Attending Physician: David Shah MD Admitting Physician: David Shah MD Referring Physician: Karly De La Garza MD [...] Maintenance, 07/16/17 13:28:48, Route to Pharmacy Electronically, [id number], [facility] [address] Start Date: 07/16/17 Status: OrderedBiktarvy By Mouth, [...] 4 Refills, Maintenance, 06/06/20 9:21:00 EST, [id number], 170, cm, 08/22/19 14:32:00 EST, Height Start [...]
--- OUTSIDE RECORDS SUMMARY | 2022-04-30 10:48 | XMS_ITS | Continuity of Care Document ---
:1970 Author Organization [facility]ocr[facility] and D richard Address [address] [place] [address]- Care Team Providers Name Role Phone Karly De La Garza MD Primary Care Physician [place] [facility] [place]22 [place] 02/22/22 [facility] Endocrinology and Diabetes [address] [place] [address] Allergies, Adverse Reactions, Alerts Substance Reaction Severity Status Egg Allergy Active Immunizations Given and Recorded Vaccine Date Status Refusal Reason Meningococcal Conjugate Vaccine1 12/02/21 Given Hepatitis A Adult Vaccine2 12/02/21 Given zoster vaccine, inactivated3 12/02/21 Given zoster vaccine, inactivated4 05/20/21 Given influenza virus vaccine, inactivated 09/12/21 Recorded SARS-CoV-2 (COVID-19) mRNA-1273 vaccine 07/10/21 Recorded SARS-CoV-2 (COVID-19) mRNA-1273 vaccine 09/27/20 Recorded SARS-CoV-2 (COVID-19) mRNA-1273 vaccine 08/30/20 Recorded pneumococcal 23-valent vaccine 07/08/17 Given tetanus/diphtheria/pertussis, acel(Tdap) 04/09/17 Recorde d Influenza Virus Vaccine (oldterm) 05/25/14 Recorded 1Result Comment: Booster [id number] Comment: First [id number] Comment: Second [id number] Comment: [facility] #1 Medications Amlodipine By Mouth, Daily, 0 Refills, Maintenance, 03/26/18 9:05:10 EDT Start Date: 03/26/18 Status: Orderedaspirin 81 mg oral delayed release tablet 81 mg, By Mouth, Daily, # 200 tablet, Refills 3, Tot. Refills 3, Maintenance, 07/16/17 13:28:48, Route to Pharmacy Electronically, [id number], [facility] [address] Start Date: 07/16/17 Status: OrderedBiktarvy By Mouth, Daily, 0 Refills, Maintenance, 11/30/19 9:06:00 EDT Start Date: 11/30/19 Status: OrderedBiktarvy oral tablet 1 tablet, By Mouth, Daily, # 30 tablet, 5 Refills, Maintenance, 05/20/21 13:36:00 EDT, Tablet, [facility] #08139, Partial fill upon patient request if the prescription is for a schedule II opioid drug., 1 tablet By Mouth Daily,x30 days, 174,... Start Date: 05/20/21 Stop Date: 11/16/21 Status: Orderedcyclobenzaprine 5 mg oral tablet 4 tablet = 20 mg, By Mouth, Daily, 0 Refills, Maintenance, 07/07/17 14:25:36 EST Start Date: 07/07/17 Status: Orderedlevothyroxine 125 mcg (0.125 mg) oral tablet 2 tablet = 250 mcg, By Mouth, Daily, # 60 tablet, 5 Refills, Maintenance, 01/23/22 15:48:00 EDT, Tablet, [facility] #57095, 174, cm, 12/02/21 16:37:00 EDT, Height, 85.2, kg, 12/18/20 12:19:00EDT, Dry Weight Start Date: 01/23/22 Stop Date: 07/22/22 Status: Orderedsulfamethoxazole-trimethoprim 400 mg-80 mg oral tablet 1 tablet, By Mouth, 2 times a day, for 30 days, # 60 tablet, 3 Refills, Acute 04/01/22 15:58:00 EDT,12/02/21 15:58:00 EDT, Tablet, [facility] #25969, Partial fill upon patient request if theprescription is for a schedule II opioid drug., 1... Start Date: 12/02/21 Stop Date: 04/01/22 Status: Orderedticagrelor 90 mg oral tablet 1 [...]
--- OUTSIDE RECORDS SUMMARY | 2022-04-30 10:48 | XMS_ITS | Continuity of Care Document ---
:1970 Author Organization [facility] Infectious Disease Address [address] [place] [address]- Care Team Providers Name Role Phone Karly De La Garza MD Primary Care Physician [facility] Date(s): 09/23/21 - 10/23/21 [facility] Infectious Disease [address] [place] [id number] Allergies, Adverse Reactions, Alerts Substance Reaction Severity Status Egg Allergy Active Immunizations Given and Recorded Vaccine Date Status Refusal Reason influenza virus vaccine, inactivated 09/12/21 Recorded SARS-CoV-2 (COVID-19) mRNA-1273 vaccine 07/10/21 Recorded SARS-CoV-2 (COVID-19) mRNA-1273 vaccine 09/27/20 Recorded SARS-CoV-2 (COVID-19) mRNA-1273 vaccine 08/30/20 Recorded zoster vaccine, inactivated1 05/20/21 Given pneumococcal 23-valent vaccine 07/08/17 Given tetanus/diphtheria/pertussis, acel(Tdap) 04/09/17 Recorde d Influenza Virus Vaccine (oldterm) 05/25/14 Recorded 1Result Comment: Shingrix #1 Medications Amlodipine By Mouth, Daily, 0 Refills, Maintenance, 03/26/18 9:05:10 EDT Start Date: 03/26/18 Status: Orderedaspirin 81 mg oral delayed release tablet 81 mg, By Mouth, Daily, # 200 tablet, Refills 3, Tot. Refills 3, Maintenance, 07/16/17 13:28:48, Route to Pharmacy Electronically, [id number], [facility] [address] Start Date: 07/16/17 Status: OrderedBiktarvy By Mouth, Daily, 0 Refills, Maintenance, 11/30/19 9:06:00 EDT Start Date: 11/30/19 Status: OrderedBiktarvy oral tablet 1 tablet, By Mouth, Daily, # 30 tablet, 5 Refills, Maintenance, 05/20/21 13:36:00 EDT, Tablet, [facility] #[id number], Partial fill upon patient request if the [...] 4 Refills, Maintenance, 06/06/20 9:21:00 EST, Tablet, [facility] #[id number], 170, cm, 08/22/19 14:32:00 EST, Height Start [...]
--- OUTSIDE RECORDS SUMMARY | 2022-04-30 10:48 | XMS_ITS | Continuity of Care Document ---
:1970 Author Organization [facility] Disease Address [address] [place] [address]- Care Team Providers Name Role Phone Karly De La Garza MD Primary Care Physician [facility]counter [facility] Date(s): 08/06/21 - 09/05/21 [facility] [address] [place] [id number] Allergies, Adverse Reactions, Alerts Substance Reaction Severity Status Egg Allergy Active Immunizations Given and Recorded Vaccine Date Status Refusal Reason zoster vaccine, inactivated1 05/20/21 Given SARS-CoV-2 (COVID-19) mRNA-1273 vaccine 09/27/20 Recorded SARS-CoV-2 [...] Maintenance, 07/16/17 13:28:48, Route to Pharmacy Electronically, [id number], [facility] [address]01 Start Date: 07/16/17 Status: OrderedBiktarvy By Mouth, Daily, 0 Refills, Maintenance, 11/30/19 9:06:00 EDT Start Date: 11/30/19 Status: OrderedBiktarvy oral tablet 1 tablet, By Mouth, Daily, # 30 tablet, 5 Refills, Maintenance, 05/20/21 13:36:00 EDT, Tablet, [facility] #[id number], Partial fill upon patient request if the [...] 4 Refills, Maintenance, 06/06/20 9:21:00 EST, Tablet, [facility] #40065, 170, cm, 08/22/19 14:32:00 EST, Height Start Date: 06/06/20 Status: Orderedsulfamethoxazole-trimethoprim 400 mg-80 mg oral tablet 1 tablet, By Mouth, 2 times a day, for 30 days, # 60 tablet, 3 Refills, Acute 09/17/21 13:38:00 EST,05/20/21 13:38:00 EDT, Tablet, [facility] #76545, Partial fill upon patient request if theprescription is for a schedule II opioid drug., 1... Start Date: 05/20/21 Stop Date: 09/17/21 Status: Orderedticagrelor 90 mg oral tablet 1 [...]
--- OUTSIDE RECORDS SUMMARY | 2022-04-30 10:48 | XMS_ITS | Continuity of Care Document ---
:1970 Author Organization [facility] Infect[facility] Disease Address [address] [place] [address]- Care Team Providers Name Role Phone Karly De La Garza MD Primary [id number] - 05/26/21 [facility] [address] [place] [id number] Attending Physician: Luciana Bhatti MD Admitting Physician: Luciana Bhatti MD Referring Physician: Karly De La Garza [...] Maintenance, 07/16/17 13:28:48, Route to Pharmacy Electronically, [id number], [facility] Start Date: 07/16/17 Status: OrderedBiktarvy By Mouth, Daily, 0 Refills, Maintenance, 11/30/19 9:06:00 EDT Start Date: 11/30/19 Status: OrderedBiktarvy oral tablet 1 tablet, By Mouth, Daily, # 30 tablet, 5 Refills, Maintenance, 05/20/21 13:36:00 EDT, Tablet, [facility] #[id number], Partial fill upon patient request if the [...] 4 Refills, Maintenance, 06/06/20 9:21:00 EST, Tablet, [facility] #35583, 170, cm, 08/22/19 14:32:00 EST, Height Start Date: 06/06/20 Status: Orderedsulfamethoxazole-trimethoprim 400 mg-80 mg oral tablet 1 tablet, By Mouth, 2 times a day, for 30 days, # 60 tablet, 3 Refills, Acute 09/17/21 13:38:00 EST,05/20/21 13:38:00 EDT, Tablet, [facility] #01037, Partial fill upon patient request if theprescription [...]
--- OUTSIDE RECORDS SUMMARY | 2022-04-30 10:48 | XMS_ITS | Continuity of Care Document ---
:1970 Author Organization [facility] Address [address] [place] [address]- Care Team Providers Name Role Phone Karly De La Garza MD Primary Care Physician [place] [facility] [place] 10/16/20 - 01/30/21 [facility] Endocrinology and Diabetes [address] [place] [address] Attending Physician: America Mesa DO Admitting Physician: America Mesa DO Referring Physician: Karly [...] Maintenance, 07/16/17 13:28:48, Route to Pharmacy Electronically, [id number], [facility] [address] Start Date: 07/16/17 Status: OrderedBiktarvy By Mouth, [...] 4 Refills, Maintenance, 06/06/20 9:21:00 EST, Tablet, [facility] #92645, 170, cm, 08/22/19 14:32:00 EST, Height Start [...]
--- OUTSIDE RECORDS SUMMARY | 2022-04-30 10:48 | XMS_ITS | Continuity of Care Document ---
:1970 Author Organization [facility] Address [address] [place] [address]- Care Team Providers Name Role Phone Karly De La Garza MD Primary Care Physician [place] [facility] [place] 10/26/20 - 11/25/20 [facility] [address] [place] [id number] Attending Physician: Yong Villaafna Admitting Physician: Yong Villafana Referring Physician: [id number] Allergies, Adverse Reactions, Alerts Substance Reaction Severity [...] Maintenance, 07/16/17 13:28:48, Route to Pharmacy Electronically, [id number], [facility] [address] Start Date: 07/16/17 Status: OrderedBiktarvy By Mouth, [...] 4 Refills, Maintenance, 06/06/20 9:21:00 EST, Tablet, [facility] #55283, 170, cm, 08/22/19 14:32:00 EST, Height Start Date: 06/06/20 Status: OrderedLyrica CR By Mouth, Daily before dinner, 0 Refills, Maintenance, 11/30/19 9:03:00 EDT Start Date: 11/30/19 Status: OrderedNuLYTELY Lemon [place] oral powder for reconstitution 240 mL, By Mouth, Daily, # 4,000 mL, 0 Refills, Maintenance, 10/26/20 9:30:00 EDT, REC Powder, [facility] #25910, Partial fill upon patient request if the prescription is for a schedule II opioid drug., 170, cm, 08/22/19 14:32:00 EST, Height Start Date: 10/26/20 Status: Orderedticagrelor 90 mg oral tablet 1 [...]
--- OUTSIDE RECORDS SUMMARY | 2022-04-30 10:48 | XMS_ITS ---
:1970 Author Care Team Providers Name Role Phone Arleth Nicole Primary Care Provider Unavailable Allergies Code Code System Name Reaction Severity Status Onset NKDA ? Medications Name Status Start Date Stop Date ? ? amlodipine Active ? Not available aspirin Active ? Not available azithromycin 500 mg tablet Active ? Not a vailable Azithromycin 500mg, #2, PO stat Biktarvy Active ? Not available Flexeril Active ? Not available Flexor Completed ? 02/11/2019 levothyroxine Active ? Not available Problems No Known Problems Procedures None recorded. Results Lab Results Date Name Specimen Result Interpretation Description Value Range Status Address ? 06/28/2019 Trichomonas UR ? Trichomonas not not Fi nal Ppsne Lab Vaginalis detected detected (Cl -0962): RNA, Urine [address] [facility] 06/28/2019 CT + NG DNA, Urine ? C. negative ? Final [place] PCR, Urine Trachomatis chlamydia [facility] trachomatis Healt h rrna not Laborato ry detected. (Cl-019 7): [address] [facility] 06/28/2019 CT + NG DNA, Urine ? N. negative ? Final [place] PCR, Urine Gonorrhoeae neisseria [facility] gonorrhoeae Healt h rrna not Laborato ry detected (Cl-0197 ): [address] [facility] 06/28/2019 CT + NG DNA, Urine ? Comment none ? [facility] Laboratory (Cl-0197): [facility] 06/28/2019 Vdrl W/ Blood ? Syphilis-vd nonreactive nonreact caleb Final [place] Titer, Serum venou rl Slide [facility] Laboratory (Cl-0197): [address] [facility] 06/28/2019 Vdrl W/ Blood ? Comment none nonreactive Final [place] Titer, Serum venou Stat e [facility] Laboratory (Cl-0197): [facility] 02/11/2019 Trichomonas UR ? Trichomonas not not Fi nal Ppsne Lab Vaginalis detected detected (Cl -0962): RNA, Urine [address], [place] 02/11/2019 Urinalysis, ? Leukocytes Negative ? ? [facility] Clia: [id number] : [address], [place] ? ? ? Nitrite negative ? ? [facility] Clia: [id number] : [address], [place] ? ? ? Protein Trace ? ? [facility] Clia: [id number] : [address], [place] ? ? ? Blood Negative ? ? [facility] Clia: [id number] : [address], [place] ? ? ? Glucose Negative ? ? [facility] Clia: [id number] : [address], [place] 02/11/2019 Vdrl W/ Blood ? Syphilis-vd nonreactive nonreact caleb Final [place] Titer, Serum venou rl Slide [facility] Laboratory (Cl-0197): [facility] 02/11/2019 CT + NG DNA, Urine ? N. negative ? Final [place] PCR, Urine Gonorrhoeae neisseria [facility] gonorrhoeae Healt h rrna not Laborato ry detected (Cl-0197 ): [facility] 02/11/2019 CT + NG DNA, Urine ABNO C. positive ? Final [place] PCR, Urine RMAL Trachomatis chlamydia [facility] trachomatis Healt h rrna Laboratory detected. (Cl-019 7): [facility] Past Encounters None recorded. Social History Tobacco Smoking Status Current Some Day Smoker Vaccine List None recorded. Plan of Care Reminders Provider Appointments None recorded. ? ? Lab None recorded. ? ? Referral None recorded. ? ? Procedures None recorded. ? ? Surgeries None recorded. ? ? Imaging None recorded. ? ? Vitals None recorded.
--- OUTSIDE RECORDS SUMMARY | 2022-04-30 10:48 | XMS_ITS | Continuity of Care Document ---
:1970 Author Organization [facility] Address [address] [place] [address]- Care Team Providers Name Role Phone Karly De La Garza MD Primary Care Physician [place] [facility] [place] - 07/29/19 [facility] Endocrinology and Diabetes [address] [place] [address] [facility] Attending Physician: America Mesa DO Admitting Physician: America Mesa DO Allergies, Adverse Reactions, Alerts Substance Reaction Severity [...] Maintenance, 07/16/17 13:28:48, Route to Pharmacy Electronically, [id number], [facility] [address] Start Date: 07/16/17 Status: Orderedatorvastatin 80 mg oral tablet = 80 mg, By Mouth, Daily at bedtime, # 30 tablet, 0 Refills, Maintenance, Tablet, Route to Pharmacy Electronically, [id number], [facility] Start Date: 07/09/17 Status: [...] Maintenance, 07/16/17 13:24:15, Route to Pharmacy Electronically, [id number], [place]... Start Date: 07/16/17 Stop Date: 07/11/18 Status: Orderedmetoprolol 100 mg oral tablet, extended release 100 mg, 1, tablet, By Mouth, Daily, This replaces his current regimen of 25 mg q8h., # 90 tablet, Refills 3, Tot. Refills 3, Maintenance, 07/16/17 13:26:25, Route to Pharmacy Electronically, [id number], [email or web address] 0... Start Date: 07/16/17 Stop Date: 07/11/18 [...]
--- OUTSIDE RECORDS SUMMARY | 2022-04-30 10:48 | XMS_ITS | Continuity of Care Document ---
:1970 Author Organization [facility] Infectious Disease Address [address] [place] [address]- Care Team Providers Name Role Phone Karly De La Garza MD Primary Care Physician En[facility] [place] Date(s): 06/06/21 - 07/06/21 [facility] Infectious Disease [address] [place] [id number] Attending Physician: Admtr, Ar8 Admitting Physician: Admtr, Ar8 Referring Physician: Admtr, Ar8 Allergies, Adverse Reactions, [...] Maintenance, 07/16/17 13:28:48, Route to Pharmacy Electronically, [id number], [facility] [address] Start Date: 07/16/17 Status: OrderedBiktarvy By Mouth, Daily, 0 Refills, Maintenance, 11/30/19 9:06:00 EDT Start Date: 11/30/19 Status: OrderedBiktarvy oral tablet 1 tablet, By Mouth, Daily, # 30 tablet, 5 Refills, Maintenance, 05/20/21 13:36:00 EDT, Tablet, [facility] #22037, Partial fill upon patient request if the [...] 4 Refills, Maintenance, 06/06/20 9:21:00 EST, Tablet, [facility] #85930, 170, cm, 08/22/19 14:32:00 EST, Height Start Date: 06/06/20 Status: Orderedsulfamethoxazole-trimethoprim 400 mg-80 mg oral tablet 1 tablet, By Mouth, 2 times a day, for 30 days, # 60 tablet, 3 Refills, Acute 09/17/21 13:38:00 EST,05/20/21 13:38:00 EDT, Tablet, [facility] #49422, Partial fill upon patient request if theprescription [...] Former smoker; Type: Cigaret cherry; Type: Quit years ago entered on: 07/27/17 Sex
--- OUTSIDE RECORDS SUMMARY | 2022-04-30 10:48 | XMS_ITS | Continuity of Care Document ---
:1970 Author Organization [facility] Address [address] [place] [address]- Care Team Providers Name Role Phone Karly De La Garza MD Primary Care Physician [facility]counter [facility] Date(s): 05/08/21 - 06/07/21 [facility] Endocrinology and Diabetes [address] [place] [address] Allergies, Adverse Reactions, Alerts Substance [...] Maintenance, 07/16/17 13:28:48, Route to Pharmacy Electronically, [id number], [facility] [address] Start Date: 07/16/17 Status: OrderedBiktarvy By Mouth, Daily, 0 Refills, Maintenance, 11/30/19 9:06:00 EDT Start Date: 11/30/19 Status: OrderedBiktarvy oral tablet 1 tablet, By Mouth, Daily, # 30 tablet, 5 Refills, Maintenance, 05/20/21 13:36:00 EDT, Tablet, [facility] #75121, Partial fill upon patient request if the [...] 4 Refills, Maintenance, 06/06/20 9:21:00 EST, Tablet, [facility] #81424, 170, cm, 08/22/19 14:32:00 EST, Height Start Date: 06/06/20 Status: Orderedsulfamethoxazole-trimethoprim 400 mg-80 mg oral tablet 1 tablet, By Mouth, 2 times a day, for 30 days, # 60 tablet, 3 Refills, Acute 09/17/21 13:38:00 EST,05/20/21 13:38:00 EDT, Tablet, [facility] #91959, Partial fill upon patient request if theprescription [...]
--- OUTSIDE RECORDS SUMMARY | 2022-04-30 10:48 | XMS_ITS | Continuity of Care Document ---
:1970 Author Organization [facility] Infectious Disease Address [address] [place] [address]- Care Team Providers Name Role Phone Karly De La Garza MD Primary Care Physician [place] [facility] [place] 06/03[place]21 - 07/06/21 [facility] Infectious Disease [address] [place] [address] Attending Physician: Not on Staff, Attending MD Referring Physician: Karly De La Garza [...] Maintenance, 07/16/17 13:28:48, Route to Pharmacy Electronically, [id number], [facility] [address] Start Date: 07/16/17 Status: OrderedBiktarvy By Mouth, Daily, 0 Refills, Maintenance, 11/30/19 9:06:00 EDT Start Date: 5/13/20 Status: OrderedBiktarvy oral tablet 1 tablet, By Mouth, Daily, # 30 tablet, 5 Refills, Maintenance, 05/20/21 13:36:00 EDT, Tablet, [facility] #73235, Partial fill upon patient request if the [...] 4 Refills, Maintenance, 06/06/20 9:21:00 EST, Tablet, [facility] #55132, 170, cm, 08/22/19 14:32:00 EST, Height Start Date: 06/06/20 Status: Orderedsulfamethoxazole-trimethoprim 400 mg-80 mg oral tablet 1 tablet, By Mouth, 2 times a day, for 30 days, # 60 tablet, 3 Refills, Acute 09/17/21 13:38:00 EST,05/20/21 13:38:00 EDT, Tablet, [facility] #55592, Partial fill upon patient request if theprescription [...]
--- OUTSIDE RECORDS SUMMARY | 2022-04-30 10:48 | XMS_ITS | Continuity of Care Document ---
:1970 Author Organization [facility] Address [address] [place] [address]- Care Team Providers Name Role Phone Karly De La Garza MD Primary Care Physician [place] [facility] [place]19 - 12/30/19 [facility] Endocrinology and Diabetes [address] [place] [id number] [facility] Attending Physician: America Mesa DO Admitting Physician: [...] Maintenance, 07/16/17 13:28:48, Route to Pharmacy Electronically, [id number], [facility] [address] Start Date: 07/16/17 Status: OrderedBiktarvy By Mouth, [...] 4 Refills, Maintenance, 11/30/19 9:01:00 EDT, Tablet, [id number], 170, cm, 08/22/19 14:32:00 EST, Height, 80, [...]
--- OUTSIDE RECORDS SUMMARY | 2022-04-30 10:48 | XMS_ITS | Continuity of Care Document ---
:1970 Author Organization [facility] Endocrinology and D [place] Address [address] [place] [address]- Care Team Providers Name Role Phone Karly De La Garza MD Primary Care Physician [place] [facility] [place] 06/06/20 - 07/06/20 [facility] Endocrinology and Diabetes [address] [place] [id number] Attending Physician: Yong Villafana Admitting Physician: [...] Maintenance, 07/16/17 13:28:48, Route to Pharmacy Electronically, [id number], [facility] [address] Start Date: 07/16/17 Status: OrderedBiktarvy By Mouth, [...] 4 Refills, Maintenance, 06/06/20 9:21:00 EST, Tablet, [facility] #86125, 170, cm, 08/22/19 14:32:00 EST, Height Start [...]
--- OUTSIDE RECORDS SUMMARY | 2022-04-30 10:48 | XMS_ITS | Continuity of Care Document ---
:1970 Author Organization [facility] Address [address] [place] [address]- Care Team Providers Name Role Phone Karly De La Garza MD Primary Care Physician Encounter [facility] [place] Date(s): 12/02/21 - 01/01/22 [facility] [address] [place] [id number] Attending Physician: AdmYong shaikh Admitting Physician: AdmtrYong Referring Physician: Admtr, Ar8 Allergies, Adverse Reactions, [...] Vaccine (oldterm) 05/25/14 Recorded 1Result Comment: Booster [id number] Comment: First [id number] Comment: Second [id number] Comment: Shingrix #1 Medications Amlodipine By Mouth, Daily, 0 Refills, Maintenance, 03/26/18 9:05:10 EDT Start Date: 03/26/18 Status: Orderedaspirin 81 mg oral delayed release tablet 81 mg, By Mouth, Daily, # 200 tablet, Refills 3, Tot. Refills 3, Maintenance, 07/16/17 13:28:48, Route to Pharmacy Electronically, [id number], [facility] [id number] Start Date: 07/16/17 Status: OrderedBiktarvy By Mouth, Daily, 0 Refills, Maintenance, 11/30/19 9:06:00 EDT Start Date: 11/30/19 Status: OrderedBiktarvy oral tablet 1 tablet, By Mouth, Daily, # 30 tablet, 5 Refills, Maintenance, 05/20/21 13:36:00 EDT, Tablet, [facility] #[id number], Partial fill upon patient request if the [...] mcg, By Mouth, Daily, # 60 tablet, 0 Refills, Maintenance, 12/05/21 15:24:00 EDT, Tablet, [facility] #[id number], 174, cm, 12/02/21 16:37:00 EDT, Height, 85.2, kg, 12/18/20 12:19:00EDT, Dry Weight Start Date: 12/05/21 Stop Date: 01/04/22 Status: Orderedsulfamethoxazole-trimethoprim 400 mg-80 mg oral tablet 1 tablet, By Mouth, 2 times a day, for 30 days, # 60 tablet, 3 Refills, Acute 04/01/22 15:58:00 EDT,12/02/21 15:58:00 EDT, Tablet, [facility] #[id number], Partial fill upon patient request if theprescription [...]
[2022-04-30 10:59] LABS: MANUAL DIFF FLAG NO
[2022-04-30 11:01] LABS: Basophils Percent Auto 0.4 % (0-2); Eosinophils Absolute Auto 0.1 X10*3/uL (0.0-0.4); Eosinophils Percent Auto 0.8 % (0-4); Hematocrit 39.7 % (42.0-52.0); Hemoglobin 14.4 g/dl (14.0-18.0); Imm Gran Abs Auto 0.08 X10*3/uL (0.00-0.03); Imm Gran Pct Auto 1.1 % (0.0-0.4); Lymphocytes Absolute Auto 1.7 X10*3/uL (1.2-4.9); Lymphocytes Percent Auto 22.3 % (20-40); Mean Corpuscular HGB Conc 36.3 g/dl (31.0-36.0); Mean Corpuscular Hemoglobin 32.5 pg (27.0-33.0); Mean Corpuscular Volume 89.6 fL (80.0-98.0); Mean Platelet Volume 10.4 fL (9.4-12.4); Monocytes Absolute Auto 0.5 X10*3/uL (0.1-1.2); Monocytes Percent Auto 6.2 % (2-11); Neutrophils Absolute Auto 5.2 x10*3/uL (2.0-8.3); Neutrophils Percent Auto 69.2 % (45-73); Platelet Count 200 X10*3/uL (160-400); Red Blood Count 4.43 X10*6/uL (4.60-5.80); Red Cell Distribution Width 11.9 % (11.0-16.0); White Blood Count 7.5 X10*3/uL (4.8-10.8)
[2022-04-30 11:17] LABS: Alanine Aminotransferase 35 U/L (0-40); Albumin Level 4.8 g/dL (3.5-5.0); Alkaline Phosphatase 59 U/L (39-117); Anion Gap 15 (12-20); Aspartate Amino Transferase 23 U/L (5-37); Bilirubin Direct 0.2 mg/dL (0.0-0.5); Bilirubin Total 0.7 mg/dL (0.0-1.0); Blood Urea Nitrogen 12 mg/dL (9-16); Calcium 9.2 mg/dL (8.4-10.2); Carbon Dioxide 24 mmol/L (22-29); Chloride 105 mmol/L (96-108); Creatinine Clr Calc Pharmacy 73.6; Estimated Glomerular Filt Rate > 60; Glucose Random 134 mg/dL (60-115); Lipase 46 U/L (8-78); Magnesium 2.3 mg/dL (1.6-2.6); Potassium 3.9 mmol/L (3.3-5.1); Sodium 140 mmol/L (135-145); Total Protein 7.8 g/dL (6.5-8.0)
[2022-04-30 11:21] LABS: INTERNATIONAL NORM RATIO 1.1 (0.9-1.1); Prothrombin Time 13.1 SEC (10.0-13.1)
[2022-04-30 11:24] LABS: B Type Natriuretic Peptide 44 pg/mL (<100); Troponin-I High Sensitivity < 3.5 ng/L (<3.5-35.0)
[2022-04-30 11:37] LABS: Influenza A PCR NEGATIVE (Negative); Influenza B PCR NEGATIVE (Negative); Resp Syncy Virus RNA Qual PCR NEGATIVE (Negative); SARS COV2 PCR INHOUSE NEGATIVE (Negative)
[2022-04-30 11:39] LABS: TSH reflex Free T4 0.87 uIU/mL (0.32-4.0)
[2022-04-30 11:41] LABS: Appearance Urine Clear; Color Urine Yellow; Glucose Urine UA Negative (Negative); Leukocyte Esterase Urine Negative (Negative); Nitrite Urine Negative (Negative); Urine Blood Negative (Negative); Urine Ketones Negative (Negative); Urine Protein Negative (Neg-Trace)
[2022-04-30 14:05] LABS: Troponin-I High Sensitivity 4.3 ng/L (<3.5-35.0)
--- NOTE | 2022-04-30 15:00 | PC.NURSE ---
Pt V/S are stable, pt is in no pain, a/o x4. RN heard some wheezing during expiration throughout the lobes bilaterally. + skin turgor, no edema AND +peripheral pulses. Pt is still feeling dizzy and provider is aware. Pt is going got MRI. will continue to monitor.
--- NOTE | 2022-04-30 17:00 | PC.NURSE ---
pt in mri, unable to give medication, will give it when he returns
[2022-04-30] MEDS: Meclizine HCl 25 MG TABLET PO (19:04)
[2022-04-30] MEDS: diazePAM 2 MG TABLET 4 MG PO (19:04)
[2022-04-30] MEDS: 0.9 % Sodium Chloride 1,000 ML 999 ML IVCONT (19:23)
--- NOTE | 2022-04-30 19:23 | PC.NURSE ---
Addendum entered by Brady Cardoza 04/30/22 19:31: During ortho pt was diaphoresis. Original Note: Pt meds were administered as order. Pt BP is elevated, pt is connected to the telemetry NSR, pt meds were administered as order. will continue to monitor.
[2022-04-30] MEDS: diphenhydrAMINE HCL 25 MG CAPSULE PO (19:58)
--- NOTE | 2022-04-30 20:03 | PC.NURSE ---
Pt meds were administered as order, BP has gotten down. will continue to monitor.
--- NOTE | 2022-04-30 21:43 | PC.NURSE ---
this pct took patient for a short walk ,Patient became very dizzy ,md and rn aware .
[2022-04-30] MEDS: Amoxicillin/Potassium Clav 875 MG TABLET PO (22:05)
--- NOTE | 2022-04-30 22:05 | PC.NURSE ---
Pt V/s are stable, pt had meds administer by order. Pt walked with a tech and he reported dizzy and diaphoresis. Pt IVF are still running.
--- NOTE | 2022-04-30 22:26 | PHA.MEDREC ---
Pharmacy Consult ? Medication Reconciliation Pharmacy has completed the medication reconciliation.
--- NOTE | 2022-04-30 23:03 | PM.IMHP ---
History of Present Illness Date of Service: 04/30/22 Chief Complaint: Dizziness This is a 51-year-old male with a pertinent history of HIV with last CD4 count in the 600s, essential hypertension, asthma, hypothyroidism who presents to the emergency department for evaluation of dizziness. Patient states he had sudden onset of sensation of room spinning that started yesterday. It was associated with nausea and gait instability. No similar history or similar complaints in the past. Patient states that the dizziness did not resolve and hence he decided to present for further evaluation. States he has been having runny nose, watering of eyes and postnasal drip cough for the last 2 weeks. No fever, chills, chest discomfort, shortness of breath. Symptoms do not worsen with head movement. No focal limb weakness, hoarseness, dysphagia, abnormal eye movements, sensory loss, dysarthria, facial droop, and limb dysmetria. Patient denies abdominal discomfort, changes in urinary or bowel habits. States his symptoms of upper respiratory infection including runny nose have not improved for the last 2 weeks and he is not taken any antibiotics for it. Review of Systems Review of Systems: All 13 review of systems are negative except as noted in [facility] Medical History (Updated 04/30/22 @ 23:14 by Santosh Hoyt MD) Coronary artery disease involving [place] coronary artery of [place] heart with angina pectoris Diverticulitis Essential hypertension GERD (gastroesophageal reflux disease) HIV (human immunodeficiency virus infection) Hypothyroidism Ischemic cardiomyopathy Kidney stone Pure hypercholesterolemia Surgical History History of surgery Stented coronary artery Social History Patient Tobacco Use Status: Never used Tobacco Use of substances other than those prescribed or required for medical reasons: No Advance Directives: No Advance Directives Information Provided: Yes Meds Allergies Allergy/AdvReac Type Severity Reaction Status Date / Time No Known Allergies Allergy Verified 12/31/21 07:57 Active Medications: Current Medications Acetaminophen (Acetaminophen 325 Mg Tablet) 650 mg PO Q6H PRN PRN Reason: Pain, Mild (Pain Scale 1-3) Albuterol Sulfate (Albuterol Sulfate 90 Mcg 8 Gm Inhaler) 2 puff INHALE QID PRN PRN Reason: Shortness Of Breath Amoxicillin/Clavulanate Potassium (Amoxicillin/Potassium Clav 875 Mg Tablet) 875 mg PO BID REPLACED BY [facility] Bictegravir/Emtricitabine/Tenofovir (Bictegrav/Emtricit/Tenofov Ala Tablet) 1 tab PO DAILY REPLACED BY [facility] Cyclobenzaprine HCl (Cyclobenzaprine Hcl 10 Mg Tablet) 10 mg PO BEDTIME PRN PRN Reason: Sleep Fluticasone Propionate (Fluticasone Propionate Nasal 16 Gm [place]) 2 spray NOSTRIL-B BID REPLACED BY [facility] Levothyroxine Sodium (Levothyroxine Sodium 125 Mcg Tablet) 250 mcg PO DAILY REPLACED BY [facility] Melatonin (Melatonin 3 Mg Tablet) 6 mg PO BEDTIME PRN PRN Reason: Insomnia Non-Formulary Medication (Fluticasone Propionate [Flovent Hfa]) 2 puff PO BID REPLACED BY [facility] Ondansetron HCl (Ondansetron Hcl 4 Mg/2 Ml Vial) 4 mg IVPUSH Q8H PRN PRN Reason: Nausea and Vomiting Prednisone (Prednisone 20 Mg Tablet) 60 mg PO DAILY REPLACED BY [facility] Sodium Chloride (0.9 % Sodium Chloride Flush 3 Ml Syringe) 3 ml [facility]FLUSH [facility] Home Medications Medication Instructions Recorded Confirmed Last Taken Type amlodipine 5 mg tablet 5 mg PO DAILY 05/27/21 04/30/22 04/29/22 History bictegravir 50 mg-emtricitabine 1 tab PO DAILY 05/27/21 04/30/22 04/29/22 History 200 mg-tenofovir alafenam 25 mg tablet (Biktarvy) cyclobenzaprine 10 mg tablet 10 mg PO BEDTIME PRN Sleep 05/27/21 04/30/22 04/29/22 History fluticasone propionate 44 2 puff PO BID 05/27/21 04/30/22 04/29/22 History mcg/actuation HFA aerosol inhaler (Flovent HFA) levothyroxine 125 mcg tablet 250 mcg PO DAILY 05/27/21 04/30/22 04/29/22 History sulfamethoxazole 400 1 tab PO BID 06/25/21 04/30/22 04/29/22 History mg-trimethoprim 80 mg tablet albuterol sulfate 90 mcg/actuation 2 puff PO QID PRN Shortness Of 12/27/21 04/30/22 04/30/22 History aerosol inhaler (ProAir HFA) Breath Physical Exam Vital Signs and Narrative: Vital Signs: Last Vital Signs Temp 98.1 F 04/30/22 21:42 Pulse 81 04/30/22 21:42 Resp 16 04/30/22 21:42 BP 151/89 H 04/30/22 21:42 Pulse Ox 98 04/30/22 21:42 O2 Del Method 04/30/22 21:42 BMI result Body Mass Index 27.8 Middle-aged male lying in bed in no distress Neck supple, no JVD Regular rate and rhythm, S1-S2 heard Regular breath sounds bilaterally, no wheezing or crackles appreciated Abdomen soft nontender, no guarding, no rigidity Patient is awake, alert and oriented to self, place, time and person ; no focal motor deficit, joseph hallpike maneuver negative Psych: Normal mood No pedal edema Results Labs CBC and Chem 7: 04/30/22 10:48 04/30/22 10:48 Labs: Laboratory Results - last 24 hr 04/30/22 04/30/22 04/30/22 10:48 10:48 10:48 MCV 89.6 MCH 32.5 MCHC 36.3 H RDW 11.9 Plt Count 200 MPV 10.4 Immature Gran % (Auto) 1.1 H Neut % (Auto) 69.2 Lymph % (Auto) 22.3 [place] % (Auto) 6.2 Eos % (Auto) 0.8 Baso % (Auto) 0.4 Lymph # (Auto) 1.7 [place] # (Auto) 0.5 Eos # (Auto) 0.1 Baso # (Auto) 0.0 Abs Immat Gran (auto) 0.08 H Absolute Neuts (auto) 5.2 Absolute Nucleated RBC 0.000 Nucleated RBC % (auto) 0.0 PT 13.1 INR 1.1 APTT 35.0 Anion Gap 15 Estim Creat Clear Calc 73.6 Estimated GFR > 60 Random Glucose 134 H Calcium 9.2 Magnesium 2.3 Total Bilirubin 0.7 Direct Bilirubin 0.2 AST 23 ALT 35 Alkaline Phosphatase 59 Troponin I High Sens B-Natriuretic Peptide Total Protein 7.8 Albumin 4.8 Lipase 46 TSH Urine Color Urine Appearance Urine pH Ur Specific [place] Urine Protein Urine Glucose (UA) Urine Ketones Urine Blood Urine Nitrite Ur Leukocyte Esterase Influenza Type A (PCR) Influenza Type B (PCR) RSV RNA Qual (PCR) SARS-CoV-2 RNA (RT-PCR) 04/30/22 04/30/22 04/30/22 10:48 10:48 10:51 MCV MCH MCHC RDW Plt Count MPV Immature Gran % (Auto) Neut % (Auto) Lymph % (Auto) [place] % (Auto) Eos % (Auto) Baso % (Auto) Lymph # (Auto) [place] # (Auto) Eos # (Auto) Baso # (Auto) Abs Immat Gran (auto) Absolute Neuts (auto) Absolute Nucleated RBC Nucleated RBC % (auto) PT INR APTT Anion Gap Estim Creat Clear Calc Estimated GFR Random Glucose Calcium Magnesium Total Bilirubin Direct Bilirubin AST ALT Alkaline Phosphatase Troponin I High Sens < 3.5 B-Natriuretic Peptide 44 Total Protein Albumin Lipase TSH 0.87 Urine Color Urine Appearance Urine pH Ur Specific [place] Urine Protein Urine Glucose (UA) Urine Ketones Urine Blood Urine Nitrite Ur Leukocyte Esterase Influenza Type A (PCR) NEGATIVE Influenza Type B (PCR) NEGATIVE RSV RNA Qual (PCR) NEGATIVE SARS-CoV-2 RNA (RT-PCR) NEGATIVE 04/30/22 04/30/22 11:34 13:37 MCV MCH MCHC RDW Plt Count MPV Immature Gran % (Auto) Neut % (Auto) Lymph % (Auto) [place] % (Auto) Eos % (Auto) Baso % (Auto) Lymph # (Auto) [place] # (Auto) Eos # (Auto) Baso # (Auto) Abs Immat Gran (auto) Absolute Neuts (auto) Absolute Nucleated RBC Nucleated RBC % (auto) PT INR APTT Anion Gap Estim Creat Clear Calc Estimated GFR Random Glucose Calcium Magnesium Total Bilirubin Direct Bilirubin AST ALT Alkaline Phosphatase Troponin I High Sens 4.3 B-Natriuretic Peptide Total Protein Albumin Lipase TSH Urine Color Yellow Urine Appearance Clear Urine pH 6.0 Ur Specific [place] 1.020 Urine Protein Negative Urine Glucose (UA) Negative Urine Ketones Negative Urine Blood Negative Urine Nitrite Negative Ur Leukocyte Esterase Negative Influenza Type A (PCR) Influenza Type B (PCR) RSV RNA Qual (PCR) SARS-CoV-2 RNA (RT-PCR) Imaging Radiologist's Impressions: Impressions Chest X-Ray 04/30/22 11:34 IMPRESSION: No acute cardiopulmonary process. Head CT 04/30/22 11:53 IMPRESSION: 1. No acute intracranial pathology. 2. Paranasal sinus inflammatory changes as detailed above. Brain MRI 04/30/22 18:09 IMPRESSION: 1. No acute infarct or other acute intracranial abnormality. 2. Opacification of the left sphenoid sinus and layering fluid in the left maxillary sinus. Correlate clinically for acute sinusitis. Assessment and Plan (1) Vestibular neuritis: Status: Acute (2) Vertigo: Status: Acute (3) Essential hypertension: Status: Acute (4) Hypothyroidism: Status: Acute (5) HIV (human immunodeficiency virus infection): Status: Acute (6) Asthma: Status: Acute Plan This is a 51-year-old male with a pertinent history of HIV with last CD4 count in the 600s, essential hypertension, asthma, hypothyroidism who presents to the emergency department for evaluation of dizziness. #. Vertigo due to vestibular neuritis #. Acute bacterial rhinosinusitis -will admit patient due to severe symptoms and inability to ambulate. Although self-limiting will prescribe steroids to improve recovery of peripheral vestibular function. Initiating 10 day course of prednisone for vestibular neuritis; 60 mg daily on days 1-5, 40 mg on day 6, 30 mg on day 7, 20 mg Thursday 8, 10 mg on day 9 and 5 mg on day 10. Monitor for improvement and will get a PT to evaluate in the morning. Prescribing Augmentin for bacterial rhinosinusitis. Noted MRI negative ruling out central etiology. [place] hallpike maneuver negative. #. Essential hypertension -hold amlodipine as it can worsen dizziness #. HIV with last CD4 count in the 600s -continue Biktarvy #. Hypothyroidism -on levothyroxine #. Asthma -continue home inhaler. Not in exacerbation at the time of admission DVT prophylaxis: Lovenox 40 mg daily Diet: Cardiac diet Full code Quality Stroke Does the patient have a stroke diagnosis?: No VTE Prior VTE?: No VTE Risk Level:: Medical - low VTE Device Contraindication: Treatment Not Indicated VTE Drug Contraindication: Treatment Not Indicated
[2022-05-01] VITALS: BP 145/77; PULSE 82; RESP 15; O2SAT 98
[2022-05-01] MEDS: Cyclobenzaprine HCl 10 MG TABLET PO (00:48)
[2022-05-01] MEDS: Enoxaparin Sodium 40 MG/0.4 ML SYRINGE SUBCUT ×2 (00:48→20:11)
[2022-05-01] MEDS: predniSONE 20 MG TABLET 60 MG PO ×2 (00:49→10:25)
[2022-05-01 02:44] VITALS: BMI 28.3
[2022-05-01] MEDS: Levothyroxine Sodium 125 MCG TABLET 250 MCG PO (06:24)
[2022-05-01 07:22] VITALS: BP 141/90; PULSE 85; RESP 20; TEMP 36.3; O2SAT 99
[2022-05-01] MEDS: Fluticasone/Vilanterol 100/25 BLST.W.DEV 1 PUFF INHALE (08:25)
[2022-05-01 08:27] VITALS: PULSE 63; RESP 18; O2SAT 98
--- NOTE | 2022-05-01 09:30 | MHC.CM.PN ---
CONY DELIVERED CM MET WITH PT. LIVES WITH FRIENDS, NO SERVICES OR DME AT HOME. HAS HCP ON FILE AT MD OFFICE, WILL SEE IF CAN GET A COPY. PCP DR. LEAL AT [facility]. COVID VAX X3 WITH MODERNA. PT OPEN TO PT/OT AT HOME IF RECOMMENDED, REFERRAL SENT TO [facility] PER PREFERENCE. FRIEND WILL TRANSPORT HOME AT NH
[2022-05-01] MEDS: Amoxicillin/Potassium Clav 875 MG TABLET PO ×2 (10:25→20:11)
[2022-05-01] MEDS: Bictegrav/Emtricit/Tenofov Ala TABLET 1 TAB PO (10:25)
[2022-05-01] MEDS: 0.9 % Sodium Chloride Flush 3 ML SYRINGE IVFLUSH ×3 (10:26→20:11)
[2022-05-01 11:49] VITALS: BP 120/65; PULSE 90; RESP 20; TEMP 36.9; O2SAT 99
--- NOTE | 2022-05-01 15:39 | HO.PM.IMPN ---
Subjective Subjective Date of Service: 05/01/22 Interval History: seen and examined this morning follow up for dizziness, vestibular neuritis still reporting dizziness with walking, nausea Review of Systems Review of Systems: Yes all other systems are reviewed and are negative Constitutional Constitutional: Denies chills and Denies fever(s) ENT Ears, Nose, Mouth, and Throat: Reports dizziness Cardiovascular Cardiovascular: Denies chest pain, Denies palpitations and Denies dyspnea Respiratory Respiratory: Denies cough and Denies dyspnea Gastrointestinal Gastrointestinal: Denies abdominal pain, Denies diarrhea, Denies nausea and Denies vomiting Neurologic Neurologic: Reports dizziness Endocrine Endocrine: Denies palpitations Physical Exam Vital Signs: Vital Signs: Last Vital Signs Temp 98.5 F 05/01/22 11:49 Pulse 90 05/01/22 11:49 Resp 20 05/01/22 11:49 BP 120/65 05/01/22 11:49 Pulse Ox 99 05/01/22 11:49 O2 Del Method 05/01/22 11:49 BMI result Body Mass Index 28.3 Const: General: cooperative, alert and awake Nutritional Appearance: average body habitus Orientation/consciousness: patient oriented x3 Resp: Effort & Inspection: normal respiratory effort and able to speak in complete sentences Auscultation: clear to auscultation bilaterally Cardio: Rate: regular rate Heart sounds: S1 normal heart sound present and S2 normal heart sound present GI: Inspection: No distended Palpation (GI): Soft to palpation and nontender Neuro: Other: horizontal nystagmus; face symmetrical, strength equal bilaterally General: patient oriented x3 Cranial nerves: Yes Midline tongue present Objective Data Active Medications Acetaminophen (Acetaminophen 325 Mg Tablet) 650 mg PO Q6H PRN PRN Reason: Pain, Mild (Pain Scale 1-3) Albuterol Sulfate (Albuterol Sulfate 90 Mcg 8 Gm Inhaler) 2 puff INHALE QID PRN PRN Reason: Shortness Of Breath Amoxicillin/Clavulanate Potassium (Amoxicillin/Potassium Clav 875 Mg Tablet) 875 mg PO BID ON LICENSE OF [facility] Last Admin: 05/01/22 10:25 Dose: 875 mg Documented By: HAFSA Bictegravir/Emtricitabine/Tenofovir (Bictegrav/Emtricit/Tenofov Ala Tablet) 1 tab PO DAILY ON LICENSE OF [facility] Last Admin: 05/01/22 10:25 Dose: 1 tab Documented By: HAFSA Cyclobenzaprine HCl (Cyclobenzaprine Hcl 10 Mg Tablet) 10 mg PO BEDTIME PRN PRN Reason: Sleep Last Admin: 05/01/22 00:48 Dose: 10 mg Documented By: MARIS Enoxaparin Sodium (Enoxaparin Sodium 40 Mg/0.4 Ml Syringe) 40 mg SUBCUT Q24H ON LICENSE OF [facility] Last Admin: 05/01/22 00:48 Dose: 40 mg Documented By: MARIS Fluticasone Propionate (Fluticasone Propionate Nasal 16 Gm [place]) 2 spray NOSTRIL-B BID ON LICENSE OF [facility] Last Admin: 05/01/22 10:27 Dose: Not Given Documented By: HAFSA Non-Admin Reason: Patient Refused Fluticasone/Vilanterol (Fluticasone/Vilanterol 100/25 Blst.W.Dev) 1 puff INHALE RDAILY ON LICENSE OF [facility] Last Admin: 05/01/22 08:25 Dose: 1 puff Documented By: AGNIESZKA Levothyroxine Sodium (Levothyroxine Sodium 125 Mcg Tablet) 250 mcg PO 0600 ON LICENSE OF [facility] Last Admin: 05/01/22 06:24 Dose: 250 mcg Documented By: MARIS Melatonin (Melatonin 3 Mg Tablet) 6 mg PO BEDTIME PRN PRN Reason: Insomnia Ondansetron HCl (Ondansetron Hcl 4 Mg/2 Ml Vial) 4 mg IVPUSH Q8H PRN PRN Reason: Nausea and Vomiting Prednisone (Prednisone 20 Mg Tablet) 60 mg PO DAILY ON LICENSE OF [facility] Last Admin: 05/01/22 10:25 Dose: 60 mg Documented By: HAFSA Sodium Chloride (0.9 % Sodium Chloride Flush 3 Ml Syringe) 3 ml IVFLUSH QSHIFT ON LICENSE OF [facility] Last Admin: 05/01/22 10:26 Dose: 3 ml Documented By: HAFSA Labs CBC & Chem 7: 04/30/22 10:48 04/30/22 10:48 Assessment and Plan (1) Vestibular neuritis: Status: Acute Plan This is a 51-year-old male with a pertinent history of HIV with last CD4 count in the 600s, essential hypertension, asthma, hypothyroidism who presents to the emergency department for evaluation of dizziness. #. Vertigo due to vestibular neuritis #. Acute bacterial rhinosinusitis Noted MRI negative ruling out central etiology. still with unsteady gait -will admit patient due to severe symptoms and inability to ambulate. -continue steroids Initiating 10 day course of prednisone for vestibular neuritis; 60 mg daily on days 1-5, 40 mg on day 6, 30 mg on day 7, 20 mg Thursday 8, 10 mg on day 9 and 5 mg on day 10 -seen by PT - can consider outpatient PT -Continue Augmentin for bacterial rhinosinusitis. #. Essential hypertension on norvasc at baseline, initially held, will resume #. HIV with last CD4 count in the 600s -continue Biktarvy #. Hypothyroidism -on levothyroxine #. Asthma -continue home inhaler. Not in exacerbation at the time of admission DVT prophylaxis: Lovenox 40 mg daily Diet: Cardiac diet Full code attending - dr. solis Quality Stroke Does the patient have a stroke diagnosis?: No VTE Prior VTE?: No VTE Risk Level:: Medical - low VTE Device Contraindication: Treatment Not Indicated VTE Drug Contraindication: Treatment Not Indicated
[2022-05-01 15:51] VITALS: BP 152/79; PULSE 98; RESP 20; TEMP 36.5; O2SAT 97
[2022-05-01] MEDS: Fluticasone Propionate Nasal 16 GM SPRAY 2 SPRAY NOSTRIL-B (20:11)
[2022-05-02] VITALS: BP 148/81; PULSE 75; RESP 18; TEMP 36.1; O2SAT 96
[2022-05-02] MEDS: Levothyroxine Sodium 125 MCG TABLET 250 MCG PO (06:11)
[2022-05-02 07:38] VITALS: BP 116/64; PULSE 72; RESP 20; TEMP 36.4; O2SAT 98
[2022-05-02 08:00] VITALS: BP 116/64; PULSE 80; RESP 20; TEMP 37; O2SAT 97
[2022-05-02] MEDS: predniSONE 20 MG TABLET 60 MG PO (08:52)
[2022-05-02] MEDS: amLODIPine Besylate 5 MG TABLET PO (08:52)
[2022-05-02] MEDS: Bictegrav/Emtricit/Tenofov Ala TABLET 1 TAB PO (08:53)
[2022-05-02] MEDS: Amoxicillin/Potassium Clav 875 MG TABLET PO (08:53)
[2022-05-02] MEDS: Fluticasone/Vilanterol 100/25 BLST.W.DEV 1 PUFF INHALE (09:10)
[2022-05-02 09:12] VITALS: RESP 16; O2SAT 98
--- NOTE | 2022-05-02 09:51 | PM.DS ---
DS: Providers Provider Date of Service: 05/02/22 Date of admission: 04/30/22 22:57 Date of discharge: 05/02/22 Primary care physician: Karly De La Garza MD Attending physician on discharge: Michael Gamboa Discharging clinician: Zaira Richter DS: Diagnosis Discharge Diagnosis (1) Vestibular neuritis: Status: Acute (2) Essential hypertension: Status: Acute DS: Summary Hospital Course Hospital Course: From H&P on day of admission This is a 51-year-old male with a pertinent history of HIV with last CD4 count in the 600s, essential hypertension, asthma, hypothyroidism who presents to the emergency department for evaluation of dizziness.? Patient states he had sudden onset of sensation of room spinning that started yesterday.? It was associated with nausea and gait instability.? No similar history or similar complaints in the past.? Patient states that the dizziness did not resolve and hence he decided to present for further evaluation.? States he has been having runny nose, watering of eyes and postnasal drip cough for the last 2 weeks.? No fever, chills, chest discomfort, shortness of breath.? Symptoms do not worsen with head movement.? No focal limb weakness, hoarseness, dysphagia, abnormal eye movements, sensory loss, dysarthria, facial droop, and limb dysmetria.? Patient denies abdominal discomfort, changes in urinary or bowel habits.? States his symptoms of upper respiratory infection including runny nose have not improved for the last 2 weeks and he is not taken any antibiotics for it. Vertigo due to vestibular neuritis Noted MRI negative ruling out central etiology. was started on prednisone and will be continute 10 day course of prednisone for vestibular neuritis; 60 mg daily on days 1-5, 40 mg on day 6, 30 mg on day 7, 20 mg Thursday 8, 10 mg on day 9 and 5 mg on day 10 -seen by PT - can consider outpatient PT Essential hypertension Bp was initially elevated but has noramalized on home dose of norvasc Time Spent with Patient Time attestation: Total time spent providing and/or coordinating discharge services: Discharge coordination time: Greater than 30 minutes Quality: Safe Use of Opioids Does Pt have an Active Cancer Diagnosis on the Problem List?: No Quality: Stroke Does the patient have a stroke diagnosis?: No Physical Exam Vital Signs: Vital Signs: Last Vital Signs Temp 98.6 F 05/02/22 08:00 Pulse 80 05/02/22 08:00 Resp 16 05/02/22 09:12 BP 116/64 05/02/22 08:00 Pulse Ox 97 05/02/22 08:00 O2 Del Method 05/02/22 08:00 BMI result Body Mass Index 28.3 Const: General: cooperative, comfortable, no acute distress, alert and awake Nutritional Appearance: average body habitus Orientation/consciousness: patient oriented x3 Resp: Effort & Inspection: normal respiratory effort and able to speak in complete sentences Auscultation: clear to auscultation bilaterally Cardio: Rate: regular rate Heart sounds: S1 normal heart sound present and S2 normal heart sound present GI: Inspection: No distended Palpation (GI): Soft to palpation and nontender Neuro: General: patient oriented x3 and CN's II-XI intact bilaterally Extrem: General: Yes no pedal edema Discharge Plan Discharge Patient Disposition: Home, Self-Care Discharge Diagnosis: vestibular neuritis sinusitis uncontrolled HTN Referrals: Karly De La Garza MD [Primary Care Provider] - 1 Week Discharge Medications: New prednisone 10 mg tablet See Taper PO DAILY Qty: 29 0RF Taper: Prednisone 60 mg daily for 3 Days and 0 Hour 40 mg daily for 1 Day and 0 Hour 30 mg daily for 1 Day and 0 Hour 20 mg daily for 1 Day and 0 Hour 10 mg daily for 2 Days amoxicillin-pot clavulanate 875-125 mg tablet 1 tab PO BID 3 Days Qty: 6 0RF Continued cyclobenzaprine 10 mg tablet 10 mg PO BEDTIME PRN (Reason: Sleep) amlodipine 5 mg tablet 5 mg PO DAILY levothyroxine 125 mcg tablet 250 mcg PO DAILY fluticasone propionate [Flovent HFA] 44 mcg/actuation HFA aerosol inhaler 2 puff PO BID Biktarvy 50-200-25 mg tablet 1 tab PO DAILY sulfamethoxazole-trimethoprim 400-80 mg tablet 1 tab PO BID albuterol sulfate [ProAir HFA] 90 mcg/actuation HFA aerosol inhaler 2 puff PO QID PRN (Reason: Shortness Of Breath) Discharge Orders: Discharge Order (Routine); Ordered 05/02/22 Ordered By: Zaira Richter Activity on Discharge: As tolerated Stand Alone Forms: Patient Portal Discharge page Care Plan Goals: see below Health Concerns: dizziness related to vestibular neuritis elevated blood pressure - BP has improved on home dose of norvasc you received Breo inhaler in the hospital in place of your flovent as flovent is not on formulary no changes to baseline medications Plan of Treatment: complete course of prednisone can complete course of antibiotics. hold bactrim while taking augmentin call to schedule follow up with PCP Assessment: see discharge summary Patient Instructions: Sinusitis (ED) Discharge Date/Time: 05/02/22 12:27
--- NOTE | 2022-05-02 10:21 | MHC.CM.PN ---
Patient has been medically cleared for dc to home today, self care.
[2022-05-02 11:16] VITALS: BP 116/60; PULSE 83; RESP 20; TEMP 36.5; O2SAT 98
== END 2022-05-02 12:27 | disposition home or self-care (01) ==
LOC: HO.ED 22:11 → HO.EDOVER 23:02 → HO.IMC 23:27
PROVIDERS: Emergency Medicine; Admitting Provider Student in an Organized Health Care Education/Training Program; Emergency Provider Emergency Medicine; PCP Student in an Organized Health Care Education/Training Program; Visit Provider Physician Assistant Medical
DX: H81.20 Vestibular neuronitis, unspecified ear (principal); J01.40 Acute pansinusitis, unspecified; I10 Essential (primary) hypertension; T48.3X5A Adverse effect of antitussives, initial encounter; Y92.019 Unspecified place in single-family (private) house as the place of occurrence of the external cause; R26.89 Other abnormalities of gait and mobility; R06.02 Shortness of breath; Z20.822 Contact with and (suspected) exposure to COVID-19; E78.00 Pure hypercholesterolemia, unspecified; J45.909 Unspecified asthma, uncomplicated; B20 Human immunodeficiency virus [HIV] disease; Z79.899 Other long term (current) drug therapy
CPT/HCPCS: 0241U; 36415; 70450; 70551; 71045; 80048; 80076; 81003; 83690; 83735; 83880; 84443; 84484; 85025; 85610; 85730; 93005; 94640; 96360; 96361; 96372; 97161; 99219; 99285; J1650

== ENCOUNTER 2022-06-30 13:26 | Outpatient (REF) | payer MEDICAID, SELFPAY ==
--- NOTE | ~2022-06-30 | US_ITS ---
EXAMINATION: US RETROPERITONEAL LIMITED (RENAL ONLY) CLINICAL INFORMATION: Calculus of kidney. COMPARISON: Renal ultrasound 11/28/2021 TECHNIQUE: Routine retrocaval imaging of kidneys was performed. FINDINGS: RIGHT KIDNEY: 11.3 x 6.2 x 5.6 cm (SAG x AP x TRV). The kidney is normal in size, contour, and echogenicity. Renal cortical thickness is normal. No calculi or focal parenchymal lesions. No hydronephrosis. There are multiple echogenic foci seen throughout without a twinkle artifact. LEFT KIDNEY: 11.4 x 5.9 x 4.3 cm (SAG x AP x TRV). The kidney is normal in size, contour, and echogenicity. Renal cortical thickness is normal. No calculi or focal parenchymal lesions. No hydronephrosis. There are multiple echogenic foci seen throughout without twinkle artifact. US/US renal BI IMPRESSION: 1. Multiple echogenic foci seen throughout both kidneys. No echogenic stones or hydronephrosis seen. 2. No change from previous ultrasound 11/28/2021
== END 2022-06-30 13:27 | disposition home or self-care (01) ==
LOC: HO.US 13:26
PROVIDERS: Visit Provider Urology
DX: N20.0 Calculus of kidney (principal)
CPT/HCPCS: 76775

== ENCOUNTER → 2022-07-01 15:55 | Outpatient (BNVA) | payer MEDICAID, SELFPAY | PROVIDERS: PCP Student in an Organized Health Care Education/Training Program; Visit Provider Urology | DX: N20.0 Calculus of kidney (principal) | CPT/HCPCS: 99212 ==

== ENCOUNTER 2022-08-05 19:52 | Emergency (ER) | payer MEDICAID, SELFPAY ==
--- NOTE | ~2022-08-05 | CT_ITS ---
EXAMINATION: CT head/brain wo IV con CLINICAL INFORMATION: Reason for Exam Left Emerson's palsy COMPARISON: CT head 04/30/2022 TECHNIQUE: Contiguous axial imaging was performed from the skull base to vertex without intravenous contrast. Sagittal and coronal reformatted images were obtained. This CT examination was performed using dose optimization techniques as appropriate, variously including the following: * Automated exposure control * Adjustment of mA and/or kV according to patient size (this includes techniques or standardized protocols for targeted exams where dose is matched to indication/reason for exam; i.e. extremities or head) Use of iterative reconstruction technique DLP: 746 mGy-cm FINDINGS: Asymmetry of the lateral ventricles, with the left larger than the right, probably on a congenital basis. No significant volume loss or hydrocephalus. There is no abnormal attenuation within the brain parenchyma. No territorial loss of [place]ap[place]-white differentiation. No acute intracranial hemorrhage or extra-axial fluid collection. No mass lesion, significant mass effect, or herniation pattern. The orbits are grossly normal. Paranasal sinuses are well aerated. Trace mucosal disease within the single inferior right mastoid air cell. Osseous structures are intact. Hypertrophic degenerative changes across the partially imaged anterior atlantodental interval. Nonspecific skin thickening and subcutaneous infiltration of the partially imaged facial and right premaxillary soft tissues. CT/CT head/brain wo IV con IMPRESSION: No acute intracranial abnormality. Specifically, no CT evidence of acute intracranial hemorrhage, significant mass effect, hydrocephalus, or large territorial infarction.
[2022-08-05 19:58] VITALS: BP 162/98; PULSE 104; RESP 20; TEMP 37; O2SAT 97; BMI 27.3
--- NOTE | 2022-08-05 20:07 | PC.NURSE ---
pt came to the ed and was brought back to room [address] fletcher at bedside ? stroke vs bells palsy, pt has equal hand grasp, steady gait. alert oriented x4, left facial droop, pt has had botox and is unable to move his eye brows during assessment. per dr fletcher no stroke protocal started.
--- NOTE | 2022-08-05 20:19 | ED_ITS ---
HPI - Neuro Symptoms/Deficit General Chief Complaint: Stroke Stated Complaint: facial drooping Time Seen by Provider: 08/05/22 19:58 Source: patient Mode of arrival: ambulatory Limitations: no limitations History of Present Illness HPI Narrative: Patient's stay of HIV with undetectable viral load, coronary disease no history of Lyme disease of multiple sclerosis comes have sudden onset of left-sided facial numbness started an hour prior to arrival patient MRI 05/10 of the brain which was negative no other focal weakness. No visual changes does have poor taste Related Data Home Medications Medication Instructions Recorded Confirmed amlodipine 5 mg tablet 5 mg PO DAILY 05/27/21 07/01/22 bictegravir 50 mg-emtricitabine 1 tab PO DAILY 05/27/21 07/01/22 200 mg-tenofovir alafenam 25 mg tablet (Biktarvy) cyclobenzaprine 10 mg tablet 10 mg PO BEDTIME PRN Sleep 05/27/21 07/01/22 fluticasone propionate 44 2 puff PO BID 05/27/21 07/01/22 mcg/actuation HFA aerosol inhaler (Flovent HFA) levothyroxine 125 mcg tablet 250 mcg PO DAILY 05/27/21 07/01/22 sulfamethoxazole 400 1 tab PO BID 06/25/21 07/01/22 mg-trimethoprim 80 mg tablet albuterol sulfate 90 mcg/actuation 2 puff PO QID PRN Shortness Of 12/27/21 1 09/01/21 aerosol inhaler (ProAir HFA) Breath Previous Rx's Medication Instructions Recorded amoxicillin 875 mg-potassium 1 tab PO BID 3 days #6 tabs 05/02/22 clavulanate 125 mg tablet prednisone 10 mg tablet See Taper PO DAILY #29 tabs 05/02/22 carboxymethylcellulose sodium 1 % 1 drp ophthalmic (eye) QID #15 mL 08/05/22 eye drops (Artificial Tears (carboxymethylcellulose)) prednisone 20 mg tablet 60 mg PO DAILY #21 tabs 08/05/22 valacyclovir 1 gram tablet 1,000 mg PO TID #21 tabs 08/05/22 (Valtrex) Allergies Allergy/AdvReac Type Severity Reaction Status Date / Time No Known Allergies Allergy Verified 07/01/22 15:56 Review of Systems Review of Systems: Yes all other systems are reviewed and are negative PMFSH Past Medical History Medical History Asthma Coronary artery disease involving [place] coronary artery of [place] heart with angina pectoris Diverticulitis Essential hypertension GERD (gastroesophageal reflux disease) HIV (human immunodeficiency virus infection) Hypothyroidism Ischemic cardiomyopathy Kidney stone Pure hypercholesterolemia Surgical History History of surgery Stented coronary artery Social History Social History Alcohol intake: current Alcohol intake frequency: holidays/special occasions only Patient Tobacco Use Status: Never used Tobacco Advance Directives: Yes Advance Directives on File: Yes Advance Directives Date on File: 05/01/22 service: No Current occupational status: employed Physical Exam Vital Signs: Vital Signs: Last Vital Signs Temp 98.6 F 08/05/22 19:58 Pulse 104 H 08/05/22 19:58 Resp 20 08/05/22 19:58 BP 162/98 H 08/05/22 19:58 Pulse Ox 97 08/05/22 19:58 O2 Del Method 08/05/22 19:58 BMI result Body Mass Index 27.3 Appearance: Alert. Oriented X3. No acute distress. Eyes: PERRLA, No Nystagmus ENT: Pharynx normal. Oral Mucosa moist Neck: Normal inspection. Neck supple. CVS: Normal heart rate and rhythm. Pulses normal. Respiratory: No respiratory distress. Equal air entry bilateral, no wheezing/rales/rhonchi Abdomen: Soft and nontender. Bowel sounds are present, no mass palpable, no CVA tenderness Skin: Skin warm and dry. Normal skin color. Normal skin turgor. Extremities: No lower extremity edema. No calf tenderness Neuro: Oriented X 3. No motor deficit. 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 Patient also does have elevated CPK which is been there for a long time according to patient, unlikely any medication cause. Patient advised to follow with neurologist Lab Data [facility] Lab Attestation statement: I reviewed the patient's lab results. 08/05/22 21:08 08/05/22 21:08 Labs: Lab Results 08/05/22 08/05/22 08/05/22 Range/Units 21:08 21:08 21:08 WBC 7.6 (4.8-10.8) X10*3/uL RBC 4.44 L (4.60-5.80) X10*6/uL Hgb 14.4 (14.0-18.0) g/dl Hct 41.2 L (42.0-52.0) % MCV 92.8 (80.0-98.0) fL MCH 32.4 (27.0-33.0) pg MCHC 35.0 (31.0-36.0) g/dl RDW 13.0 (11.0-16.0) % Plt Count 186 (160-400) X10*3/uL MPV 10.0 (9.4-12.4) fL Immature Gran % (Auto) 0.5 H (0.0-0.4) % Neut % (Auto) 58.9 (45-73) % Lymph % (Auto) 31.3 (20-40) % [place] % (Auto) 6.4 (2-11) % Eos % (Auto) 2.2 (0-4) % Baso % (Auto) 0.7 (0-2) % Lymph # (Auto) 2.4 (1.2-4.9) X10*3/uL [place] # (Auto) 0.5 (0.1-1.2) X10*3/uL Eos # (Auto) 0.2 (0.0-0.4) X10*3/uL Baso # (Auto) 0.1 (0.0-0.2) X10*3/uL Abs Immat Gran (auto) 0.04 H (0.00-0.03) X10*3/uL Absolute Neuts (auto) 4.5 (2.0-8.3) x10*3/uL Absolute Nucleated RBC 0.000 (0.0-0.012) X10*3/uL Nucleated RBC % (auto) 0.0 (0.0-0.2) /100WBC ESR 5 (0-15) MM/HR Sodium 142 (135-145) mmol/L Potassium 4.3 (3.3-5.1) mmol/L Chloride 105 (96-108) mmol/L Carbon Dioxide 30 H (22-29) mmol/L Anion Gap 11 L (12-20) BUN 19 H (9-16) mg/dL Creatinine 1.26 (0.5-1.4) mg/dL Estim Creat Clear Calc 67.6 Estimated GFR 60 POC Glucose (60-115) mg/dL Random Glucose 148 H (60-115) mg/dL Calcium 9.4 (8.4-10.2) mg/dL Total Bilirubin 0.8 (0.0-1.0) mg/dL AST 32 (5-37) U/L ALT 27 (0-40) U/L Alkaline Phosphatase 55 (39-117) U/L Total Creatine Kinase 644 H (38-174) U/L C-Reactive Protein 0.36 (< or = 0.50) mg/dL Total Protein 7.0 (6.5-8.0) g/dL Albumin 4.3 (3.5-5.0) g/dL 08/05/22 Range/Units 21:10 WBC (4.8-10.8) X10*3/uL RBC (4.60-5.80) X10*6/uL Hgb (14.0-18.0) g/dl Hct (42.0-52.0) % MCV (80.0-98.0) fL MCH (27.0-33.0) pg MCHC (31.0-36.0) g/dl RDW (11.0-16.0) % Plt Count (160-400) X10*3/uL MPV (9.4-12.4) fL Immature Gran % (Auto) (0.0-0.4) % Neut % (Auto) (45-73) % Lymph % (Auto) (20-40) % [place] % (Auto) (2-11) % Eos % (Auto) (0-4) % Baso % (Auto) (0-2) % Lymph # (Auto) (1.2-4.9) X10*3/uL [place] # (Auto) (0.1-1.2) X10*3/uL Eos # (Auto) (0.0-0.4) X10*3/uL Baso # (Auto) (0.0-0.2) X10*3/uL Abs Immat Gran (auto) (0.00-0.03) X10*3/uL Absolute Neuts (auto) (2.0-8.3) x10*3/uL Absolute Nucleated RBC (0.0-0.012) X10*3/uL Nucleated RBC % (auto) (0.0-0.2) /100WBC ESR (0-15) MM/HR Sodium (135-145) mmol/L Potassium (3.3-5.1) mmol/L Chloride (96-108) mmol/L Carbon Dioxide (22-29) mmol/L Anion Gap (12-20) BUN (9-16) mg/dL Creatinine (0.5-1.4) mg/dL Estim Creat Clear Calc Estimated GFR POC Glucose 151 H (60-115) mg/dL Random Glucose (60-115) mg/dL Calcium (8.4-10.2) mg/dL Total Bilirubin (0.0-1.0) mg/dL AST (5-37) U/L ALT (0-40) U/L Alkaline Phosphatase (39-117) U/L Total Creatine Kinase (38-174) U/L C-Reactive Protein (< or = 0.50) mg/dL Total Protein (6.5-8.0) g/dL Albumin (3.5-5.0) g/dL Discharge Plan Discharge Clinical Impression: Emerson's palsy Patient Disposition: Home, Self-Care Instructions: Emerson Palsy (ED) Additional Instructions: Care of eyes as advised Medication as prescribed Facial was starch/exercises Follow neurologist if any concern Prescriptions: New prednisone 20 mg tablet 60 mg PO DAILY Qty: 21 0RF valacyclovir [Valtrex] 1 gram tablet 1,000 mg PO TID Qty: 21 0RF Artificial Tears (cmc) 1 % drops 1 drp ophthalmic (eye) QID Qty: 15 0RF No Action cyclobenzaprine 10 mg tablet 10 mg PO BEDTIME PRN (Reason: Sleep) amlodipine 5 mg tablet 5 mg PO DAILY levothyroxine 125 mcg tablet 250 mcg PO DAILY fluticasone propionate [Flovent HFA] 44 mcg/actuation HFA aerosol inhaler 2 puff PO BID Biktarvy 50-200-25 mg tablet 1 tab PO DAILY prednisone 10 mg tablet See Taper PO DAILY Qty: 29 0RF Taper: Prednisone 60 mg daily for 3 Days and 0 Hour 40 mg daily for 1 Day and 0 Hour 30 mg daily for 1 Day and 0 Hour 20 mg daily for 1 Day and 0 Hour 10 mg daily for 2 Days amoxicillin-pot clavulanate 875-125 mg tablet 1 tab PO BID 3 Days Qty: 6 0RF sulfamethoxazole-trimethoprim 400-80 mg tablet 1 tab PO BID albuterol sulfate [ProAir HFA] 90 mcg/actuation HFA aerosol inhaler 2 puff PO QID PRN (Reason: Shortness Of Breath) Referrals: Obdulio Swan MD [Physician] - 1 week Discharge Date/Time: 08/06/22 02:39
--- NOTE | 2022-08-05 20:22 | PC.NURSE ---
Dr. Sosa at pt bedside. Pt MALIK x4 answering questions appropiately, speech is clear and is speaking in full sentences. Pt ambulated to CT scan and returned to bed.
[2022-08-05] MEDS: predniSONE 20 MG TABLET 60 MG PO (20:25)
[2022-08-05] MEDS: valACYclovir HCL 1,000 MG TABLET 1000 MG PO (20:25)
--- NOTE | 2022-08-05 20:32 | ECG_ITS ---
Test Reason : STROKE Blood Pressure : / mmHG Vent. Rate : 094 BPM Atrial Rate : 094 BPM P-R Int : 152 ms QRS Dur : 090 ms QT Int : 334 ms P-R-T Axes : 056 -02 002 degrees QTc Int : 417 ms Normal sinus rhythm Low voltage QRS Cannot rule out Anteroseptal infarct , age undetermined T wave abnormality, consider lateral ischemia Abnormal ECG When compared to the previous EKG of No significant changes seen Referred By: Stephan Stanton Electronically Signed By:HIPOLITO TRAVIS MD
--- NOTE | 2022-08-05 20:32 | PC.NURSE ---
Provider into assess pt, neuro are intact. pt able to move all extremities equally. pt able to speak in clear in sentence . Will continue to monitor.
[2022-08-05 21:16] LABS: Glucose, Whole Blood 151 mg/dL (60-115)
[2022-08-05 21:16] LABS: MANUAL DIFF FLAG NO
[2022-08-05 21:18] LABS: Basophils Absolute Auto 0.1 X10*3/uL (0.0-0.2); Basophils Percent Auto 0.7 % (0-2); Eosinophils Absolute Auto 0.2 X10*3/uL (0.0-0.4); Eosinophils Percent Auto 2.2 % (0-4); Hematocrit 41.2 % (42.0-52.0); Hemoglobin 14.4 g/dl (14.0-18.0); Imm Gran Abs Auto 0.04 X10*3/uL (0.00-0.03); Imm Gran Pct Auto 0.5 % (0.0-0.4); Lymphocytes Absolute Auto 2.4 X10*3/uL (1.2-4.9); Lymphocytes Percent Auto 31.3 % (20-40); Mean Corpuscular Hemoglobin 32.4 pg (27.0-33.0); Mean Corpuscular Volume 92.8 fL (80.0-98.0); Monocytes Absolute Auto 0.5 X10*3/uL (0.1-1.2); Monocytes Percent Auto 6.4 % (2-11); Neutrophils Absolute Auto 4.5 x10*3/uL (2.0-8.3); Neutrophils Percent Auto 58.9 % (45-73); Platelet Count 186 X10*3/uL (160-400); Red Blood Count 4.44 X10*6/uL (4.60-5.80); White Blood Count 7.6 X10*3/uL (4.8-10.8)
[2022-08-05 21:34] LABS: Alanine Aminotransferase 27 U/L (0-40); Albumin Level 4.3 g/dL (3.5-5.0); Alkaline Phosphatase 55 U/L (39-117); Anion Gap 11 (12-20); Aspartate Amino Transferase 32 U/L (5-37); Bilirubin Total 0.8 mg/dL (0.0-1.0); Blood Urea Nitrogen 19 mg/dL (9-16); C Reactive Protein 0.36 mg/dL (< or = 0.50); Calcium 9.4 mg/dL (8.4-10.2); Carbon Dioxide 30 mmol/L (22-29); Chloride 105 mmol/L (96-108); Creatinine Clr Calc Pharmacy 67.6; Estimated Glomerular Filt Rate 60; Glucose Random 148 mg/dL (60-115); Potassium 4.3 mmol/L (3.3-5.1); Sodium 142 mmol/L (135-145)
[2022-08-05 21:52] LABS: Erythrocyte Sedimentation Rate 5 MM/HR (0-15)
--- NOTE | 2022-08-05 22:11 | PC.NURSE ---
pt a&o, denies any sob or chest pain. Reviewed discharge instruction with pt. pt verbalized understanding.
[2022-08-06 09:11] LABS: Prothrombin Time Whole Bld POC 13.7 sec (11.1-13.5); ~PT, ~INR - Anti Coag Clinic 1.1 (0.9-1.1)
[2022-08-07 18:33] LABS: Lyme Abs Screen <0.90 index
== END 2022-08-06 02:39 | disposition home or self-care (01) ==
PROVIDERS: Emergency Provider Internal Medicine; PCP Student in an Organized Health Care Education/Training Program
DX: G51.0 Bell's palsy (principal); R51.9 Headache, unspecified; R06.02 Shortness of breath; Z79.899 Other long term (current) drug therapy
CPT/HCPCS: 36415; 70450; 80053; 82550; 82947; 85025; 85610; 85652; 86140; 86617; 86618; 93005; 99284

== ENCOUNTER 2022-12-01 09:14 | Outpatient (REF) | payer MEDICAID, SELFPAY ==
[2022-12-05 14:33] LABS: Aldolase 5.7 U/L (<=8.1)
== END 2022-12-01 09:15 | disposition home or self-care (01) ==
LOC: HO.LAB 09:14
PROVIDERS: Visit Provider Psychiatry & Neurology Neurology
DX: G72.9 Myopathy, unspecified (principal)
CPT/HCPCS: 36415; 82085; 82550

== ENCOUNTER 2023-06-25 09:54 | Outpatient (REF) | payer MEDICAID, SELFPAY ==
--- NOTE | ~2023-06-25 | US_ITS ---
EXAMINATION: US RETROPERITONEAL LIMITED (RENAL ONLY) CLINICAL INFORMATION: Calculus of kidney. COMPARISON: Renal ultrasound 06/30/2022 and 11/28/2021. CT abdomen and pelvis 05/27/2021. X-ray abdomen 10/23/2017. TECHNIQUE: Real-time imaging of the kidneys. FINDINGS: RIGHT KIDNEY: 11.2 x 6.2 x 6.1 cm (SAG x AP x TRV). The kidney is normal in size, contour, and echogenicity. Renal cortical thickness is normal. There is an upper pole 3 mm echogenic focus with twinkle artifact that is consistent with a nonobstructing calculus. A punctate calcification is seen in the same area on the 05/27/2021 CT scan. No focal parenchymal lesions or hydronephrosis. LEFT KIDNEY: 11.9 x 6.3 x 5.4 cm (SAG x AP x TRV). The kidney is normal in size, contour, and echogenicity. Renal cortical thickness is normal. No calculi or focal parenchymal lesions. No hydronephrosis. US/US renal BI IMPRESSION: 3 mm nonobstructing right upper pole renal calculus.
== END 2023-06-25 09:55 | disposition home or self-care (01) ==
LOC: HO.HMGCX 09:54
PROVIDERS: PCP Student in an Organized Health Care Education/Training Program; Visit Provider Urology
DX: N20.0 Calculus of kidney (principal)
CPT/HCPCS: 76775

== ENCOUNTER 2023-07-03 15:37 | Outpatient (AMB) | payer MEDICAID, SELFPAY ==
--- NOTE | 2023-07-03 16:08 | A.OFFVIS_ITS ---
Intake Intake Visit Reasons: 1yr follow up/US(set) Intake Note: Patient is present for us follow up Allergies No Known Allergies Allergy (Verified 07/01/22 15:56) HPI HPI Comments History of Present Illness Details Fermin is a pleasant male. He is a patient of Dr. De La Garza. He is seen for the following urologic conditions. - nephrolithiasis Current review shows no stones Continue increased fluid Nephrolithiasis Initial evaluation via emergency room 2020 Imaging - 06/09 right 2 mm distal ureteric stone with mild mild hydronephrosis, bilateral small punctate stones - 06/10 renal ultrasound, multiple echog enic foci without twinkles - 06/11 renal ultrasound possible 3mm ri ght side Responded to conservative therapy Discussion today regarding increased fluid intake [facility]illance [facility] Medical History Asthma Coronary artery disease involving [place] coronary artery of [place] heart with angina pectoris Diverticulitis Essential hypertension GERD (gastroesophageal reflux disease) HIV (human immunodeficiency virus infection) Hypothyroidism Ischemic cardiomyopathy Kidney stone Pure hypercholesterolemia Surgical History History of surgery Stented coronary artery Social History Alcohol intake: current Alcohol intake frequency: holidays/special occasions only Patient Tobacco Use Status: Never used Tobacco Advance Directives Date on File: 05/01/22 service: No Current occupational status: employed Review of Systems Const Denies chills and Denies fever(s) Card Reports no additional complaints and Denies syncope Resp Denies cough GI Denies abdominal pain and Denies heartburn Reports as per HPI and Denies change in libido Neuro Denies syncope Psych Denies change in libido Endo Denies change in libido Physical Exam Const General: cooperative, healthy appearing, comfortable and no acute distress Orientation/consciousness: patient oriented x3 HEENT Face and sinus: Yes normal facial exam Mouth: moist mucous membranes Neck Neck: Yes normal visual inspection, Yes full ROM and Yes trachea midline Chest Chest palpation & inspection: normal inspection of the chest Resp Effort & Inspection: normal respiratory effort, able to speak in complete sentences and no respiratory distress GI Inspection: Yes normal to inspection Back/Spine/Pelvis Cervical Spine: normal cervical lordosis Thoracic/Lumbar Spine: thoracic and lumbar spine normal to inspection Skin General skin exam: no rashes or lesions noted Neuro General: patient oriented x3, gait normal, tone normal and moves all extremities Extrem General: Yes normal to inspection and Yes capillary refill normal Assessment & Plan Assessment & Plan (1) Kidney stone: Code(s): N20.0 - Calculus of kidney Plan Twelve month follow-up Orders: Orders US renal BI 364 Days N20.0 - Calculus of kidney Patient Instructions: Imaging studies, laboratory and physical exam results were discussed and reviewed in detail. No major barriers to patient understanding were identified. An opportunity to ask questions regarding the treatment plan was provided. All questions were answered. The patient expressed understanding and agreement with the above treatment plan. The patient is aware they should contact our office by phone for worsening of their current condition or the appearance of new urologic symptoms. Compliance is encouraged with any medications and followup testing that is ordered. It is a privilege to participate in the urologic care of your patient. If you have any questions or concerns regarding treatment for the above conditions, or other urologic issues, please do not hesitate to contact me. The office telephone contact is [phone]. This note is constructed using voice recognition software. While every effort has been made to ensure accuracy marketing operations intern errors may have been included. Yours sincerely, Dr Aftab Nloan MD, [facility] - Urology Providers of Expert, Compassionate Care for the Genitourinary System Coding Level of Care Code Est Pt Level 4 (80339) Diagnoses Kidney stone N20.0
== END 2023-07-03 16:34 | disposition home or self-care (01) ==
PROVIDERS: Visit Provider Urology
DX: N20.0 Calculus of kidney (principal)
CPT/HCPCS: 99213

== ENCOUNTER → 2023-07-03 15:37 | Outpatient (BNVA) | payer MEDICAID, SELFPAY | PROVIDERS: Visit Provider Urology | DX: N20.0 Calculus of kidney (principal) | CPT/HCPCS: 99212 ==

== ENCOUNTER 2023-11-23 12:32 | Outpatient (REF) | payer MEDICAID, SELFPAY ==
[2023-11-23 14:51] LABS: Alanine Aminotransferase 29 U/L (0-40); Albumin Level 4.9 g/dL (3.5-5.0); Alkaline Phosphatase 53 U/L (39-117); Anion Gap 15 (12-20); Aspartate Amino Transferase 37 U/L (5-37); Bilirubin Direct 0.3 mg/dL (0.0-0.5); Bilirubin Total 1.2 mg/dL (0.0-1.0); Blood Urea Nitrogen 13 mg/dL (9-16); Calcium 10.3 mg/dL (8.4-10.2); Carbon Dioxide 25 mmol/L (22-29); Chloride 103 mmol/L (96-108); Cholesterol 205 mg/dL (<200); Estimated Glomerular Filt Rate 59; Glucose Random 106 mg/dL (60-115); HDL Cholesterol 44 mg/dL (>40); LDL Cholesterol Calculated 147 mg/dL (<100); Potassium 3.6 mmol/L (3.3-5.1); Sodium 139 mmol/L (135-145); Thyroid Stimulating Hormone 11.28 uIU/mL (0.32-4.0); Total Protein 8.3 g/dL (6.5-8.0); Triglycerides 73 mg/dL (<150)
== END 2023-11-23 12:33 | disposition home or self-care (01) ==
LOC: HO.CHCLDS 12:32
PROVIDERS: Visit Provider Student in an Organized Health Care Education/Training Program
DX: I10 Essential (primary) hypertension (principal); E03.9 Hypothyroidism, unspecified
CPT/HCPCS: 36415; 80048; 80061; 80076; 84443

== ENCOUNTER 2024-03-10 11:51 | Outpatient (REF) | payer MEDICAID, SELFPAY ==
[2024-03-10 15:01] LABS: TSH reflex Free T4 15.84 uIU/mL (0.32-4.0)
[2024-03-10 15:47] LABS: Free T4 (Free Thyroxine) 0.62 ng/dL (0.71-1.85)
== END 2024-03-10 11:52 | disposition home or self-care (01) ==
LOC: HO.CHCLDS 11:51
PROVIDERS: Visit Provider Student in an Organized Health Care Education/Training Program
DX: E03.9 Hypothyroidism, unspecified (principal)
CPT/HCPCS: 36415; 84439; 84443

== ENCOUNTER 2024-03-16 11:32 | Outpatient (REF) | payer MEDICAID, SELFPAY ==
[2024-03-16 12:50] LABS: Estimated Average Glucose 97 mg/dL
[2024-03-16 12:58] LABS: Glucose Random 237 mg/dL (60-115)
[2024-03-16 13:07] LABS: Parathyroid Hormone Intact 59.3 pg/mL (8.7-77.1)
== END 2024-03-16 11:33 | disposition home or self-care (01) ==
LOC: HO.LAB 11:32
PROVIDERS: PCP Student in an Organized Health Care Education/Training Program; Visit Provider Student in an Organized Health Care Education/Training Program
DX: E03.9 Hypothyroidism, unspecified (principal); E83.52 Hypercalcemia
CPT/HCPCS: 36415; 82947; 83036; 83970

== ENCOUNTER 2024-04-11 14:28 | Outpatient (AMB) | payer MEDICAID, SELFPAY ==
--- NOTE | 2024-04-11 14:40 | MHC.OFFVIS ---
Vital Signs 04/11/24 14:41 Height 5 ft 7 in Weight 167 lb 15.876 oz BMI 26.3 BP 122/80 Blood Pressure Location Lt brachial Position Sitting Pulse 71 Pulse Source Monitor Intake Visit Reasons: Over due 1 year f/u clearance to travel/fly Emergency Medicine Nurse Practitioner Required: No Allergies No Known Allergies Allergy (Verified 04/11/24 14:43) Medication List - Last Reconciled 04/11/24 by Ivana Vance, LEAD WELDER-C albuterol sulfate 90 mcg/actuation (ProAir HFA) 2 puffs PO QID PRN amlodipine 5 mg PO DAILY fgusktwgc-qsjjkxud-waruowe ala 50-200-25 mg (Biktarvy) 1 tab PO DAILY carboxymethylcellulose sodium 1% (Artificial Tears (carboxymethylcellulose)) 1 drp ophthalmic (eye) QID cyclobenzaprine 10 mg PO BEDTIME PRN escitalopram oxalate 5 mg PO DAILY fluticasone propionate 44 mcg/actuation (Flovent HFA) 2 puffs PO BID levothyroxine 250 mcg PO DAILY prednisone See Taper mg PO DAILY prednisone 60 mg (3 x 20 mg) PO DAILY sulfamethoxazole-trimethoprim 400-80 mg 1 tab PO BID HPI HPI Over due 1 year f/u clearance to travel/fly: Details: Fermin is a 53-year-old male with past medical history of hypertension, hyperlipidemia, coronary artery disease, prior anterior STEMI with coronary stent placement 2016 who presents for follow-up. His last prior visit to our office was 12/29/2019. Today he reports that he is feeling well with no concerning symptoms. Over the last few years he has not had any cardiac concerns. He denies any chest discomfort at rest or with activity. No shortness of breath, PND, orthopnea or edema. No lightheadedness, presyncope, syncope, palpitations. He is compliant with his medications. Is still not taking anything for his cholesterol. He reports good activity tolerance. [facility] Medical History (Updated 04/11/24 @ 17:07 by Ivana Vance NP-C) Asthma GERD (gastroesophageal reflux disease) Hypothyroidism Diverticulitis Pure hypercholesterolemia Essential hypertension Ischemic cardiomyopathy Coronary artery disease involving [place] coronary artery of [place] heart with angina pectoris Kidney stone HIV (human immunodeficiency virus infection) Surgical History (Updated 04/11/24 @ 17:07 by Ivana Vance NP-C) History of surgery Stented coronary artery Social History Alcohol intake: current Alcohol intake frequency: holidays/special occasions only Patient Tobacco Use Status: Never used Tobacco Advance Directives Date on File: 05/01/22 service: No Current occupational status: employed Review of Systems Const All systems reviewed & are unremarkable except as noted in HPI and below ENT Denies dizziness Card Denies chest pain, Denies chest pain at rest, Denies chest pain with activity, Denies rapid heart rate, Denies pedal edema, Denies edema, Denies leg edema, Denies lightheadedness, Denies palpitations, Denies dyspnea, Denies dyspnea on exertion and Denies orthopnea Resp Denies cough, Denies dyspnea and Denies dyspnea on exertion GI Denies hematochezia and Denies change in stool character Musc Denies abnormal gait, Denies limited range of motion, Denies muscle cramps, Denies muscle weakness, Denies numbness, Denies radiating pain into limb, Denies stiffness and Denies tingling Neuro Denies abnormal gait, Denies dizziness, Denies numbness and Denies tingling Endo Denies palpitations Physical Exam Vital Signs: Last Vital Signs Pulse 71 04/11/24 14:41 BP 122/80 04/11/24 14:41 BMI result Body Mass Index 26.3 Const General: cooperative, healthy appearing, comfortable and no acute distress Orientation/consciousness: patient oriented x3 Neck Neck: Yes normal visual inspection and Yes no JVD Resp Effort & Inspection: normal respiratory effort Auscultation: clear to auscultation bilaterally, no crackles, no rales, no rhonchi and no wheezes Cardio Jugular venous distension: no JVD Rate: regular rate Rhythm: regular rhythm Heart sounds: S1 normal heart sound present, S2 normal heart sound present, no murmurs and no rubs Neuro General: patient oriented x3 Extrem General: Yes normal to inspection and No no pedal edema Psych Appearance: grossly normal Mental Status: mental status grossly normal Speech and movement: Normal speech and movement present Office Procedures EKG Details: Today, read by me, normal sinus rhythm, anterior septal infarct, T-wave abnormalities inferior lateral leads, no significant change from prior EKG, rate 71, QTC 412 millisecond [id number], Complete Assessment & Plan Assessment & Plan (1) Old anterior wall myocardial infarction: Code(s): I25.2 - Old myocardial infarction Category: Medical Plan: History of anterior STEMI 07/08/2017 with cardiac catheterization with 2 MILADY placed to the proximal to mid LAD and a MILADY to the D2 ostium. He was on dual antiplatelet therapy for 30 months. He has done well since that time denies any recurrent anginal sounding symptoms. He reports very good activity tolerance. He was not seen in our office between 12/29/2019 and today. In that time he had no changes to his cardiac health. EKG done today shows normal sinus rhythm with anterior septal infarct, unchanged from prior, T-wave abnormality noted inferior and V4 through V6 leads, unchanged from prior. Last echocardiogram done 12/01/2019 showed EF 60-65%, no valve abnormalities, no regional wall motion abnormalities. Nuclear stress test was done 12/01/2019 showing no ischemia, mid to distal anterior wall fixed defect consistent with old OH. he will continue on aspirin indefinitely. Continue amlodipine 5 mg daily. He had leg edema with higher dose amlodipine. He was previously intolerant to [place] and metoprolol. He is also intolerant to statin and Zetia. PCSK9 inhibitor previously recommended and he had stated PCP suggested he not take it. At this time it has been a few years and he is willing to do anything to protect his health. Labs done 11/23/2023 had shown LDL 147. His ideal LDL goal is less than 70. He is agreeable to start on PCSK9 inhibitor. Will send to his pharmacy. He was given a lab slip to have his cholesterol rechecked in approximately 3 months. Signs and symptoms of angina reviewed with him. Emergency care if needed for symptoms. Cardiology follow-up 1 year, sooner if needed. (2) Stented coronary artery: Comment: 2 stents to the proximal to mid LAD, MILADY to the D2 ostium 07/08/2017 Code(s): Z95.5 - Presence of coronary angioplasty implant and graft Category: Surgical Plan: As above (3) Pure hypercholesterolemia: Code(s): E78.00 - Pure hypercholesterolemia, unspecified Category: Medical Plan: [place] LDL goal less than 70. Ordering PCSK9 inhibitor as above (4) Essential hypertension: Code(s): I10 - Essential (primary) hypertension Category: Medical Plan: Well controlled at this time. Continue amlodipine. Plan Time spent on chart review, documentation, interview and assessment Orders: Orders Lipid Panel Today E78.00 - Pure hypercholesterolemia, unspecified Coding Level of Care Code Est Pt Level 4 (18504) Diagnoses Old anterior wall myocardial infarction I25.2 Stented coronary artery Z95.5 Pure hypercholesterolemia E78.00 Essential hypertension I10 CPT Codes EKG - CPT: [id number], Complete ([id number]) Time Spent (min) 36
[2024-04-11 14:41] VITALS: BP 122/80; PULSE 71; BMI 26.3
== END 2024-04-11 15:39 | disposition home or self-care (01) ==
PROVIDERS: PCP Student in an Organized Health Care Education/Training Program; Visit Provider Nurse Practitioner Family
DX: I25.2 Old myocardial infarction (principal); Z95.5 Presence of coronary angioplasty implant and graft; E78.00 Pure hypercholesterolemia, unspecified; I10 Essential (primary) hypertension
CPT/HCPCS: 93010; 99214

== ENCOUNTER → 2024-04-11 14:28 | Outpatient (BNVA) | payer MEDICAID, SELFPAY | PROVIDERS: PCP Student in an Organized Health Care Education/Training Program; Visit Provider Nurse Practitioner Family | DX: I10 Essential (primary) hypertension (principal); I25.10 Atherosclerotic heart disease of native coronary artery without angina pectoris; I25.2 Old myocardial infarction; E78.00 Pure hypercholesterolemia, unspecified; Z95.5 Presence of coronary angioplasty implant and graft | CPT/HCPCS: 93005; 99212 ==